=== PATIENT | female | born 1945 | race Asian ===

== ENCOUNTER → 2016-12-28 | Outpatient (CLI) | payer MEDICARE, OTHER ==
[~2016-12-28] MED LIST: MED FOR CHOLESTEROL; MED FOR DIABETES; OSLT75C PO
--- NOTE | 2016-12-28 19:38 | Diagnostic Imaging Report ---
PROCEDURE: US Thyroid. TECHNIQUE: Multiple real-time grayscale images were obtained of the thyroid in various projections. INDICATION: Followup nodules. COMPARISON: 09/15/2013. FINDINGS: The right lobe measures 5.5 cm x 2.5 cm x 1.8 cm and the left lobe measures 3.8 cm x 2.1 cm x 1.8 cm. There is a 1.9 cm peripherally calcified heterogeneous nodule in the inferior right thyroid lobe, currently measuring 1.9 cm x 1.6 cm x 1.6 cm, previously measuring 1.9 cm x 1.6 cm x 1.6 cm. There is a 1.6 cm x 1.5 cm x 0.9 cm complex cystic nodule in the left thyroid lobe inferiorly. This previously measured 1.1 cm in greatest dimension. No new nodules are seen. IMPRESSION: 1. 1.9 cm partially calcified nodule in the inferior right thyroid lobe is unchanged since the prior study. 2. 1.6 cm complex cystic nodule in the inferior left thyroid lobe appears about 4-5 mm larger than in 2014 and remains indeterminate, likely related to goiter. Additional followup ultrasound is recommended. Dictated by: Dictated on workstation # [id number]
== END ==
LOC: RAD 11:54
PROVIDERS: ATTEND Family Medicine
DX: E04.1 Nontoxic single thyroid nodule (principal)
CPT/HCPCS: 76536

== ENCOUNTER 2017-03-06 10:34 | Emergency (ER) | payer MEDICARE ==
[~2017-03-06] VITALS: Ht 165.1 cm; Wt 72.6 kg
--- OUTSIDE RECORDS SUMMARY | 2017-03-06 10:38 | XMS REPORT | Continuity of Care Document ---
Author Author [facility] Organization [facility] Address Unknown Phone Unavailable Allergies Active Description Code Type Severity Reaction Onset Reported/Identified Relationship to Patient Clinical Status Yes No Known Drug Allergies [id number] Drug Allergy Unknown N/A 03/12/2013 Medications There is no data. Problems Date Dx Coded Attending Type Code Diagnosis Diagnosed By 03/12/2013 ELVIA SPEAR, PACO Sykes Ot 487.1 FLU W RESP MANIFEST NEC 03/12/2013 PACO GAN MD Ot 780.60 FEVER, UNSPECIFIED 04/12/2014 SONYA SHETTY DO S Ot 574.20 04/12/2014 KARLA SHETTY DOQUELINE S Ot 576.8 04/12/2014 KARLA SHETTY DOQUELINE S Ot 790.6 04/12/2014 JUAN JOSE JIANG DO Ot 477.9 04/12/2014 JUAN JOSE JIANG DO Ot 786.09 04/12/2014 JUAN OJSE JIANG DO Ot 786.2 07/08/2015 SONYA SHETTY DO S Ot 241.1 NONTOX MULTINODUL GOITER 07/08/2015 KARLA SHETTY DOQUELINE S Ot 574.20 CHOLELITHIASIS NOS 07/08/2015 KARLA SHETTY DOQUELINE S Ot 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 07/08/2015 KARLA SHETTY DOQUELINE S Ot 790.6 ABN BLOOD CHEMISTRY NEC 07/08/2015 JUAN JOSE JIANG DO Ot 477.9 ALLERGIC RHINITIS NOS 07/08/2015 JUAN JOSE JIANG DO Ot 786.09 RESPIRATORY ABNORM NEC 07/08/2015 JUAN JOSE JIANG DO Ot 786.2 COUGH 12/28/2016 KARLA SHETTY DOQUELINE S Ot 574.20 CHOLELITHIASIS NOS 12/28/2016 KARLA SHETTY DOQUELINE S Ot 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 Results There is no data. Encounters ACCT No. Visit Date/Time Discharge Status Pt. Type Provider Facility Loc./Unit Complaint [id number] 12/28/2016 11:54:00 12/28/2016 23:59:59 CLS Outpatient SONYA SHETTY DO [facility] RAD R THYROID NODULE [id number] 04/11/2014 08:18:00 04/11/2014 23:59:59 CLS Outpatient JUAN JOSE JIANG DO [facility] RT COUGH, ALLERGIC RHINITIS, SNORING [id number] 09/26/2013 06:45:00 09/26/2013 23:59:59 CLS Outpatient SONYA SHETTY DO S [facility] RAD ELEVATED LIVER ENZYMES [id number] 09/15/2013 12:12:00 09/15/2013 23:59:59 CLS Outpatient SONYA SHETTY DO S [facility] RAD [id number] 03/12/2013 08:26:00 03/12/2013 10:20:00 DIS Emergency ELVIA SPEAR, PACO Sykes [facility] ER
--- NOTE | 2017-03-06 11:02 | ED Cough/URI ---
General Chief Complaint: Cough/Cold/Flu Symptoms Stated Complaint: COUGH,DIZZINESS,FEVER Nursing Triage Note: PT CO OF COLD COUGH AND FEVER FOR APPROX 3 DAYS Source: patient Exam Limitations: no limitations History of Present Illness Time seen by provider: 11:00 Initial Comments To ER with a productive cough and fever for about 3 days. She has been taking jbkk-zak-pmjzhuy cold medications. Reports general weakness. Timing/Duration: constant Severity/Quality: moderate Associated Symptoms: cough, fever/chills, muscle aches Allergies and Home Medications Allergies Coded Allergies: No Known Drug Allergies (Unverified , 03/12/13) Home Medications [Med For Diabetes] , BID, (Reported) Constitutional: see HPI, chills, fever, malaise, weakness EENTM: see HPI Respiratory: see HPI, cough Cardiovascular: no symptoms reported Genitourinary: no symptoms reported Musculoskeletal: no symptoms reported Skin: no symptoms reported Past Tkcbqom-Xvjpmi-Eluuzf Hx Patient Social History Alcohol Use: Denies Use Recreational Drug Use: No Smoking Status: Never a Smoker Recent Foreign Travel: No Contact w/Someone Who Travel: No Recent Infectious Disease Expo: No Recent Hopitalizations: No Physical Abuse: No Sexual Abuse: No Immunizations Up To Date Date of Influenza Vaccine: Jan 29, 2017 Surgeries History of Surgeries: No Respiratory History of Respiratory Disorde: No Cardiovascular History of Cardiac Disorders: Yes Neurological History of Neurological Disord: No Gastrointestinal History of Gastrointestinal Di: No Musculoskeletal History of Musculoskeletal Dis: No Endocrine History of Endocrine Disorders: Yes Endocrine Disorders: Diabetes, Non-Insulin dep Cancer History of Cancer: No Psychosocial History of Psychiatric Problem: No Suicide Risk Score: 0 Integumentary History of Skin or Integumenta: No Blood Transfusions History of Blood Disorders: No Family Medical History Significant Family History: No Pertinent Family Hx Physical Exam Vital Signs Vital Sign - Last 12Hours 03/06/17 10:40 Temp 96.4 Pulse 68 Resp 18 B/P (MAP) 207/89 (128) Pulse Ox 97 Capillary Refill : Less Than 3 Seconds General Appearance: WD/WN, no apparent distress Eyes: Bilateral Eye Normal Inspection, Bilateral Eye PERRL, Bilateral Eye EOMI HEENT: PERRL/EOMI, normal ENT inspection Neck: non-tender, full range of motion Respiratory: lungs clear, normal breath sounds, no respiratory distress, no accessory muscle use Cardiovascular: regular rate, rhythm, no murmur Gastrointestinal: normal bowel sounds, non tender, soft Neurologic/Psychiatric: alert, normal mood/affect, oriented x 3 Skin: normal color She is rather hypertensive on arrival. States that she does not normally have hypertension and she is aware of. She didn't taking msqq-nip-gtffgkn cough and cold remedies which I suspect is the culprit of the hypertension at least in part. Progress/Results/Core Measures Suspected Sepsis Recent Fever Within 48 Hours: No Infection Criteria Present: None New/Unexplained Altered Menta: No Sepsis Screen: No Definite Risk Sepsis Diagnosis: SIRS Temperature:96.4 Pulse: 68 Respiratory Rate: 18 Blood Pressure 207 /89 Mean: 128 Results/Orders Micro Results Microbiology 03/06/17 Influenza Types A,B Antigen (PAULINE) - Final, Complete My Orders Orders - PIPO URBANO APRN Chest Pa/Lat (2 View) (03/06/17 10:56) Influenza A And B Antigens (03/06/17 10:59) Vital Signs/I&O Vital Sign - Last 12Hours 03/06/17 10:40 Temp 96.4 Pulse 68 Resp 18 B/P (MAP) 207/89 (128) Pulse Ox 97 Capillary Refill : Less Than 3 Seconds Blood Pressure Mean: 128 Departure Impression Impression: Primary Impression: Upper respiratory infection Disposition: 01 HOME, SELF-CARE Condition: Stable Departure-Patient Inst. Decision time for Depature: 11:45 Referrals: SONYA SHETTY DO (PCP/Family) Primary Care Physician Patient Instructions: NO INSTRUCTIONS GIVEN Add. Discharge Instructions: 1. You tested negative for influenza a chest x-ray does not show any pneumonia. We will treat for an upper respiratory infection which is likely viral in nature and tends to improve by day 5-7. If you fail to improve in the next day or 2 or if you worsen then start the antibiotic. In the meantime continue to use Tylenol and Motrin and Coricidin HBP (niaf-ddt-plkemrz cough medication which does not raise blood pressure). All discharge instructions reviewed with patient and/or family. Voiced understanding. Scripts Azithromycin (Azithromycin) 250 Mg Tablet 250 MG PO UD, #6 TAB TAKE 2 TABLETS ON DAY ONE THEN TAKE 1 TABLET DAILY FOR FOUR MORE DAYS Prov: PIPO URBANO APRN 03/06/17 PIPO URBANO APRN Mar 06, 2017 11:01
--- NOTE | 2017-03-06 11:28 | Diagnostic Imaging Report ---
Patient History: Cough, anterior chest pain Technique: Two views of the chest Comparison: 04/11/2014 FINDINGS: The lung volumes are normal. No focal consolidation is seen. No large pleural effusion or pneumothorax is seen. The cardiomediastinal silhouette is normal in size and contour. No acute osseous abnormality is seen. IMPRESSION: No acute pulmonary abnormality seen. Dictated by: Dictated on workstation # [id number]
[2017-03-06] MEDS ORDERED: AZIT250T12 PO (11:47)
[2017-03-06 11:52] VITALS: BP 207/89
== END 2017-03-06 11:52 | disposition home or self-care (01) ==
LOC: EDUNIT# 10:34 → ER 10:36
DX: J06.9 Acute upper respiratory infection, unspecified (principal); E11.9 Type 2 diabetes mellitus without complications
CPT/HCPCS: 71046; 87804; 99282

== ENCOUNTER 2017-10-28 10:51 | Inpatient (IN) | payer MEDICARE ==
[2017-10-28] VITALS (11 sets, daily range): BP systolic 124–193; BP diastolic 53–91
[~2017-10-28] VITALS: Ht 165.1 cm; Wt 65.9 kg
[~2017-10-28 10:51] MED LIST changes: +AZIT250T12 PO
[2017-10-28] MEDS ORDERED: GLYB6TAB3 PO (11:42)
[2017-10-28] MEDS ORDERED: METF-399 PO (11:42)
[2017-10-28] MEDS ORDERED: SIMV40TA4 PO (11:42)
[2017-10-28] MEDS ORDERED: ONDANSETRON 4 MG/2 ML (SDV) Z0FRAN IV PRN (11:45)
[2017-10-28] MEDS ORDERED: amLODIPine 10 MG (NORVASC) TAB PO NR (11:45)
[2017-10-28 12:01] LABS: BASOPHILS % (AUTO) 0 % (0-10); EOSINOPHILS # (AUTO) 0.2 10^3/uL (0.0-0.3); EOSINOPHILS % (AUTO) 2 % (0-10); HEMATOCRIT 35 % (35-52); HEMOGLOBIN 12.8 G/DL (11.5-16.0); LYMPHOCYTES # (AUTO) 3.2 X 10^3 (1.0-4.0); LYMPHOCYTES % (AUTO) 33 % (12-44); MEAN CORPUSCULAR HEMOGLOBIN 23 PG (25-34); MEAN CORPUSCULAR HGB CONC 37 G/DL (32-36); MEAN CORPUSCULAR VOLUME 63 FL (80-99); MEAN PLATELET VOLUME 9.8 FL (7.4-10.4); MONOCYTES # (AUTO) 0.6 X 10^3 (0.0-1.0); MONOCYTES % (AUTO) 6 % (0-12); NEUTROPHILS # (AUTO) 5.6 X 10^3 (1.8-7.8); NEUTROPHILS % (AUTO) 59 % (42-75); PLATELET COUNT 311 10^3/uL (130-400); RED BLOOD COUNT 5.62 10^6/uL (4.35-5.85); RED CELL DISTRIBUTION WIDTH 16.3 % (10.0-14.5); WHITE BLOOD COUNT 9.6 10^3/uL (4.3-11.0)
[2017-10-28 12:22] LABS: ALANINE AMINOTRANSFERASE 15 U/L (0-55); ALBUMIN 4.1 GM/DL (3.2-4.5); ALKALINE PHOSPHATASE 60 U/L (40-136); AMYLASE 42 U/L (25-125); BILIRUBIN,TOTAL 0.6 MG/DL (0.1-1.0); BUN/CREATININE RATIO 19; CALCIUM 9.9 MG/DL (8.5-10.1); CARBON DIOXIDE 22 MMOL/L (21-32); CHLORIDE 104 MMOL/L (98-107); CREATININE SERUM 0.81 MG/DL (0.60-1.30); GFR ESTIMATED > 60; GLUCOSE 247 MG/DL (70-105); LIPASE 48 U/L (8-78); MAGNESIUM 1.9 MG/DL (1.8-2.4); POTASSIUM 3.9 MMOL/L (3.6-5.0); SODIUM 138 MMOL/L (135-145); TOTAL PROTEIN 7.3 GM/DL (6.4-8.2)
[2017-10-28] MEDS: NS IV 1000 ML 1,000 ML IV SCH ×2 (12:30→21:38)
--- NOTE | 2017-10-28 12:44 | Diagnostic Imaging Report ---
PROCEDURE: CT head without contrast. TECHNIQUE: Multiple contiguous axial images were obtained through the brain without the use of intravenous contrast. INDICATION: Altered mental status. FINDINGS: There is prominence of ventricles and sulci. There is mild chronic microvascular ischemic disease. There is a focal area of decreased attenuation of left abdias compatible with acute to subacute stroke. There is no hydrocephalus. There is no midline shift. There is no hemorrhage. There is no extra-axial fluid collection. Calvarium is intact. There is mucosal thickening in the left maxillary sinus. Remaining sinuses and mastoid air cells are clear. IMPRESSION: Focal area of regional decreased attenuation in the left abdias suspect for subacute to acute stroke. Recommend clinical correlation. If warranted, followup with MRI. Atrophy and some chronic microvascular ischemic disease. Mucosal thickening in the left maxillary sinus. Findings conveyed directly to Dr. Nicole via telephone at 12:38 p.m. Dictated by: Dictated on workstation # [id number]
[2017-10-28] MEDS: inSUlin ASPART (NovoLOG) 1 UNIT/0.01 ML (CHARGE PER UNIT) SC SCH ×3 (13:53→21:13)
[2017-10-28] MEDS ORDERED: GADOBUTROL 7.5 MMOL/7.5 ML (GADAVIST) VIAL IV ONE (14:30)
--- NOTE | 2017-10-28 15:23 | Pulmonary Consultation ---
History of Present Illness History of Present Illness Date of Consultation 10/28/17 15:17 Time Seen by Provider: 15:17 Date of Admission History of Present Illness 72yo presented as direct admit from Dr. Nicole's office secondary to altered MS and slurred speech. Pt states she has been getting dizzy, and can not walk straight since last week. Her NIH is 1. MRI shows acute stroke. Her only current deficit is altered speech. No prior episodes like this. I am consulted for ICU management. Allergies and Home Medications Allergies Coded Allergies: No Known Drug Allergies (Unverified , 03/12/13) Home Medications Glyburide,Micronized 6 Mg Tablet, 6 MG PO BID, (Reported) LAST FILLED #180 18 Metformin HCl 1,000 Mg Tablet, 1,000 MG PO DAILY, (Reported) LAST FILLED #60 18 Simvastatin 40 Mg Tablet, 40 MG PO HS, (Reported) LAST FILLED #30 18 Past Kjejxjz-Lkdchj-Mtgqcd Hx Patient Social History Alcohol Use: Denies Use Recreational Drug Use: No Smoking Status: Never a Smoker Recent Foreign Travel: Yes Contact w/Someone Who Travel: Yes Recent Infectious Disease Expo: No Recent Hopitalizations: No Immunizations Up To Date Date of Influenza Vaccine: Jan 29, 2017 Seasonal Allergies Seasonal Allergies: No Past Medical History Surgeries: No Respiratory: No Pneumonia Currently Using CPAP: No Currently Using BIPAP: No Cardiac: Yes Neurological: No Genitourinary: No Gastrointestinal: No Musculoskeletal: No Endocrine: Yes Diabetes, Non-Insulin dep Are Your Blood Sugars Over 250: No Cancer: No Psychosocial: No Integumentary: No Blood Disorders: No Family Medical History No Pertinent Family Hx Review of Systems Time Seen by Provider: 15:26 Constitutional: No: Fever, Chills, Sweats, Weakness, Malaise, Other Eyes: No: Pain, Vision change, Conjunctivae inflammation, Eyelid inflammation, Other, Redness ENT: No: Ear pain, Ear discharge, Nose pain, Nose discharge, Nose congestion, Mouth pain, Mouth swelling, Throat pain, Throat swelling, Other Respiratory: No: Cough, Dry, Shortness of breath, SOB with excertion, Wheezing , Hemoptysis, Pleuritic Pain, Sputum, Wheezing, Other Cardiovascular: Lt Headedness; No: Chest Pain, Palpitations, Orthopnea, Paroxysmal Noc. Dyspnea, Edema, Other Gastrointestinal: No: Nausea, Vomiting, Abdominal Pain, Diarrhea, Constipation , Melena, Hematochezia, Other Neurological: Incoordination, Change in speech, Confusion; No: Weakness, Seizures Sepsis Event Evaluation Height, Weight, BMI Height: 5'5.00" Weight: 146lbs. 1.3oz. 66.168308ri; 24.3 BMI Method:Stated Exam Exam Vital Signs Date Time Temp Pulse Resp B/P (MAP) Pulse Ox O2 Delivery O2 Flow Rate FiO2 10/28/17 13:32 Room Air 10/28/17 12:59 98.2 61 12 172/74 (106) 99 Room Air 10/28/17 12:08 61 18 193/91 (125) 98 Room Air 10/28/17 11:20 98.0 62 18 174/82 (112) 99 Room Air Height & Weight Height: 5'5.00" Weight: 146lbs. 1.3oz. 66.278002jk; 24.3 BMI Method:Stated General Appearance: No Apparent Distress, WD/WN HEENT: PERRL/EOMI, Pharynx Normal, Other (patient believes her speech is slurred. ) Neck: Full Range of Motion, Normal Inspection, Non Tender, Supple; No JVD Respiratory: Chest Non Tender, Lungs Clear, Normal Breath Sounds, No Accessory Muscle Use Cardiovascular: Regular Rate, Rhythm, No Edema, No Gallop, No JVD, No Murmur, Normal Peripheral Pulses Capillary Refill: Less Than 3 Seconds Gastrointestinal: normal bowel sounds, non tender, soft, no organomegaly, no pulsatile mass Extremity: Normal Capillary Refill, Normal Inspection, Normal Range of Motion Neurologic/Psychiatric: Alert, Oriented x3 Skin: Normal Color, Warm/Dry Lymphatic: No Adenopathy Results Lab Laboratory Tests 10/28/17 11:55 Assessment/Plan Assessment/Plan Subacute CVA - symptoms started last week -Pt is out of time window for TPA -Swallow eval was done on 4th floor prior to PO meds. -Check echocardiogram and bilateral carotid dopplers - Start Plavix -Consult PT/OT HTN -Norvasc was started -Hydralazine PRN for SBP >180 JUAN JOSE JIANG DO Oct 28, 2017 15:23
[2017-10-28] MEDS ORDERED: hydrALAZINE (APESOLINE) 20 MG/ML VIAL IV PRN (15:30)
--- NOTE | 2017-10-28 15:30 | Diagnostic Imaging Report ---
PROCEDURE: MR imaging of the brain with and without contrast. TECHNIQUE: Multiplanar, multisequence MR imaging of the brain was performed with and without contrast. INDICATION: CVA. FINDINGS: There is prominence of the ventricles and sulci. There are multifocal areas of abnormal increased T2 signal intensity within the periventricular white matter and subcortical white matter bilaterally. There is a focal area of diffusion restriction in the left abdias compatible with an acute CVA. There is no hydrocephalus. There is no midline shift. There is no intracranial mass, hemorrhage, or extra-axial fluid collection. There is moderate mucosal thickening in the left maxillary sinus. Remaining sinuses and mastoid air cells are clear. There is some fluid in the left mastoid air cells. Right mastoid air cells are clear. The globes and intraorbital structures are unremarkable. Central arterial and dural venous sinus flow voids are preserved. IMPRESSION: Focal area of diffusion restriction in the left hemipons compatible with acute CVA. Atrophy and some chronic microvascular ischemic disease. Left maxillary sinus disease. Otherwise unremarkable MRI brain. Findings conveyed directly to Dr. Nicole at approximately 02:55 p.m. Dictated by: Dictated on workstation # [id number]
--- NOTE | 2017-10-28 15:42 | Diagnostic Imaging Report ---
PA and lateral chest at 1245. Indication: Dyspnea. Findings: The heart size is within normal limits and stable when compared to 03/06/2017. The lungs are clear. There is no evidence for failure, pneumonia or for pleural effusion. Mediastinum is not widened. The osseous structures are intact. Impression: There is no evidence for acute cardiopulmonary abnormality. Dictated by: Dictated on workstation # [id number]
[2017-10-28] MEDS ORDERED: inSUlin ASPART (NovoLOG) 1 UNIT/0.01 ML (CHARGE PER UNIT) SC SCH (16:00)
[2017-10-28 16:22] LABS: BILIRUBIN,URINE NEGATIVE (NEGATIVE); CLARITY,URINE CLEAR; COLOR,URINE YELLOW; GLUCOSE, URINE (UA) 2+ (NEGATIVE); KETONES,URINE NEGATIVE (NEGATIVE); LEUKOCYTE ESTERASE ,URINE 1+ (NEGATIVE); NITRITE,URINE NEGATIVE (NEGATIVE); PH,URINE 5 (5-9); PROTEIN,URINE NEGATIVE (NEGATIVE); UROBILINOGEN,URINE NORMAL (NORMAL)
[2017-10-28 17:01] LABS: BACTERIA,URINE NEGATIVE /HPF; SQUAMOUS EPITHELIAL CELL,UR 0-2 /HPF; WBC,URINE 0-2 /HPF
--- NOTE | 2017-10-28 17:09 | Diagnostic Imaging Report ---
PROCEDURE: US carotid duplex, bilateral. TECHNIQUE: Multiple real-time grayscale images were obtained over the carotid arteries in various projections, bilaterally. Additional duplex Doppler and color Doppler images were also obtained. Parameters based on the consensus panel Green-Scale and Doppler ultrasound criteria published December 2002, Radiology, Volume 229. DOPPLER (peak systolic velocity M/S Right Left CCA .83 1.01 ICA Proximal .35 .75 ICA Mid .42 .60 ICA Distal .50 .68 RATIO .6 .7 ECA 1.07 .97 VERT .45 .52 INDICATION: CVA Grayscale images show some plaque at the carotid bulbs bilaterally. The velocities and waveforms appear normal. The vertebral arteries are both patent with antegrade flow. IMPRESSION: Minimal atherosclerotic plaque at the carotid bifurcations. There is no hemodynamically significant stenosis. Dictated by: Dictated on workstation # [id number]
--- OUTSIDE RECORDS SUMMARY | 2017-10-28 17:26 | XMS REPORT | Continuity of Care Document ---
Author Author [facility] Organization [facility] Address Unknown Phone Unavailable Allergies Active Description Code Type Severity Reaction Onset Reported/Identified Relationship to Patient Clinical Status Yes No Known Drug Allergies [id number] Drug Allergy Unknown N/A 03/12/2013 Medications There [...] JIANG DO Ot 477.9 04/12/2014 JUAN JOSE JINAG DO Ot 786.09 04/12/2014 JUAN JOSE JIANG DO Ot 786.2 07/08/2015 SONYA SHETTY [...] 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 12/28/2016 KALEB SHETTY DOLINE S Ot 790.6 ABN BLOOD CHEMISTRY NEC 12/28/2016 JUAN JOSE JIANG DO Ot 477.9 ALLERGIC RHINITIS NOS 12/28/2016 JUAN JOSE JIANG DO Ot 786.09 RESPIRATORY ABNORM NEC 12/28/2016 JUAN JOSE JIANG DO Ot 786.2 COUGH 01/15/2017 DIOGENES WALKER, SONYA S Ot E04.1 NONTOXIC SINGLE THYROID NODULE 03/06/2017 COTYNDER KARLA WALKERSONYA S Ot 574.20 CHOLELITHIASIS NOS 03/06/2017 COTYNDER DO, SONYA S Ot 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 03/06/2017 CHEYENNEER DO, SONYA S Ot 790.6 ABN BLOOD CHEMISTRY NEC 03/06/2017 JUAN JOSE JIANG DO Ot 477.9 ALLERGIC RHINITIS NOS 03/06/2017 JUAN JOSE JIANG DO Ot 786.09 RESPIRATORY ABNORM NEC 03/06/2017 JUAN JOSE JIANG DO Ot 786.2 COUGH 03/06/2017 SONYA SHETTY DO S Ot E04.1 NONTOXIC SINGLE THYROID NODULE 03/06/2017 PIPO URBANO APRN Ot E11.9 TYPE 2 DIABETES MELLITUS WITHOUT COMPLIC 03/06/2017 PIPO URBANO APRN Ot J06.9 ACUTE UPPER RESPIRATORY INFECTION, UNSPE 03/06/2017 PIPO URBANO APRN Ot R05 COUGH Procedures There is no data. Results Test Result Range Influenza virus A and B antigen detection - 03/06/17 11:01 FLU RESULT NEGATIVE FOR INFLUENZA A AND B ANTIGENS BY IA NRG Encounters ACCT No. Visit Date/Time Discharge Status Pt. Type Provider Facility Loc./Unit Complaint [id number] 03/06/2017 10:36:00 03/06/2017 11:52:00 DIS Emergency PIPO URBANO APRN [facility] ER COUGH,DIZZINESS,FEVER [id number] 12/28/2016 11:54:00 12/28/2016 23:59:59 CLS Outpatient SONYA SHETTY DO S [facility] RAD R THYROID NODULE [id number] 04/11/2014 08:18:00 04/11/2014 23:59:59 CLS Outpatient JUAN JOSE JIANG DO [facility] RT COUGH, ALLERGIC RHINITIS, SNORING [id number] 09/26/2013 06:45:00 09/26/2013 23:59:59 CLS Outpatient SONYA SHETTY DO [facility] RAD ELEVATED LIVER ENZYMES [id number] 09/15/2013 12:12:00 09/15/2013 23:59:59 CLS Outpatient SONYA SHETTY DO [facility] RAD [id number] 03/12/2013 08:26:00 03/12/2013 10:20:00 DIS Emergency ELVIA SPEAR, PACO Sykes [facility] ER 07/08/17 10/28/2017 13:43:14 ACT Outpatient
--- NOTE | 2017-10-28 20:03 | History & Physicial ---
History of Present Illness History of Present Illness Reason for visit/HPI This is a 72 year old female brought to my office by her daughter with confusion and weakness. She had been in [place] visiting family for the past few months and states she had not been good about taking her medications. She was found to be hypertensive with a blood pressure of 190/100 and her blood sugar was in the high 300s. She was very weak needing assistance to ambulate as well as confused (thinking it was 196) with slurred speech. It was decided to directly admit her for further evaluation and treatment. Date of Admission Oct 28, 2017 at 11:15 Date Seen by Provider: Oct 28, 2017 Time Seen by Provider: 19:58 I consulted on this patient on 10/28/17 19:58 Attending Physician Angelita Nicole DO Admitting Physician Angelita Nicole DO Consult Allergies and Home Medications Allergies Coded Allergies: No Known Drug Allergies (Unverified , 03/12/13) Home Medications Glyburide,Micronized 6 Mg Tablet, 6 MG PO BID, (Reported) LAST FILLED #180 8-18 Metformin HCl 1,000 Mg Tablet, 1,000 MG PO DAILY, (Reported) LAST FILLED #60 38-18 Simvastatin 40 Mg Tablet, 40 MG PO HS, (Reported) LAST FILLED #30 09-21-18 Patient Home Medication List Home Medication List Reviewed: Yes Past Eijsijf-Nmmbcx-Zatnft Hx Patient Social History Alcohol Use: Denies Use Recreational Drug Use: No Smoking Status: Never a Smoker Physical Abuse Screen: No Sexual Abuse: No Recent Foreign Travel: Yes Contact w/other who traveled: Yes Recent Hopitalizations: No Recent Infectious Disease Expo: No Immunizations Up To Date Date of Influenza Vaccine: Jan 29, 2017 Seasonal Allergies Seasonal Allergies: No Surgeries No Respiratory No Currently Using CPAP: No Currently Using BIPAP: No Cardiovascular Yes Neurological No Genitourinary No Gastrointestinal No Musculoskeletal No Endocrine History of Endocrine Disorders: Yes Endocrine Disorders: Diabetes, Non-Insulin dep Are Your Blood Sugars Over 250: No Cancer No Psychosocial History of Psychiatric Problem: No Integumentary History of Skin or Integumenta: No Blood Transfusions History of Blood Disorders: No Family Medical History Significant Family History: No Pertinent Family Hx Review of Systems Constitutional: weakness EENTM: No see HPI, No no symptoms reported, No ear discharge, No hearing loss, No ear pain, No blurred vision, No double vision, No eye pain, No tearing, No vision loss, No dental problems, No hoarseness, No mouth pain, No mouth swelling , No epistaxis, No nose congestion, No nose pain, No throat pain, No throat swelling, No other Respiratory: No no symptoms reported, No see HPI, No cough, No dyspnea on exertion, No hemoptysis, No orthopnea, No phlegm, No short of breath, No stridor , No wheezing, No other Cardiovascular: No no symptoms reported, No see HPI, No chest pain, No edema, No Hx of Intervention, No palpitations, No syncope, No vascular heart diseas, No other Gastrointestinal: No RUQ, No LUQ, No RLQ, No LLQ, No no symptoms reported, No see HPI, No abdominal pain, No constipation, No diarrhea, No dysphagia, No hematemesis, No heartburn, No jaundice, No loss of appetite, No melena, No nausea, No vomiting, No other Genitourinary: No no symptoms reported, No see HPI, No decreased output, No discharge, No dysuria, No frequency, No hematuria, No hesitancy, No incontinence , No nocturia, No pain, No other Musculoskeletal: muscle weakness Skin: No no symptoms reported, No see HPI, No change in color, No change in hair/nails, No dryness, No hx of skin cancer, No lesions, No lumps, No pruritus , No rash, No other Psychiatric/Neurological: Weakness, Other (confusion) Physical Exam Vital Signs Vital Signs - First Documented 10/28/17 11:20 Temp 98.0 Pulse 62 Resp 18 B/P (MAP) 174/82 (112) Pulse Ox 99 O2 Delivery Room Air Capillary Refill : Less Than 3 Seconds Height, Weight, BMI Height: 5'5.00" Weight: 146lbs. 1.3oz. 66.296647tf; 24.3 BMI Method:Stated General Appearance: Moderate Distress HEENT: Normal ENT Inspection Neck: Supple Respiratory: Lungs Clear Cardiovascular: Regular Rate, Rhythm, Systolic Murmur, Gallop/S4 Gastrointestinal: Normal Bowel Sounds, Non Tender, Soft Rectal: Deferred Back: No CVA Tenderness Extremity: Non Tender, No Calf Tenderness, No Pedal Edema Neurologic/Psychiatric: Abnormal Gait, Disoriented, Motor Weakness Skin: Warm/Dry Comments Laboratory Tests 10/28/17 11:55: White Blood Count 9.6, Red Blood Count 5.62, Hemoglobin 12.8, Hematocrit 35, Mean Corpuscular Volume 63L, Mean Corpuscular Hemoglobin 23L, Mean Corpuscular Hemoglobin Concent 37H, Red Cell Distribution Width 16.3H, Platelet Count 311, Mean Platelet Volume 9.8, Neutrophils (%) (Auto) 59, Lymphocytes (%) (Auto) 33, Monocytes (%) (Auto) 6, Eosinophils (%) (Auto) 2, Basophils (%) (Auto) 0, Neutrophils # (Auto) 5.6, Lymphocytes # (Auto) 3.2, Monocytes # (Auto) 0.6, Eosinophils # (Auto) 0.2, Basophils # (Auto) 0.0, Sodium Level 138, Potassium Level 3.9, Chloride Level 104, Carbon Dioxide Level 22, Anion Gap 12, Blood Urea Nitrogen 15, Creatinine 0.81, Estimat Glomerular Filtration Rate > 60, BUN/ Creatinine Ratio 19, Glucose Level 247H, Calcium Level 9.9, Corrected Calcium 9.8, Magnesium Level 1.9, Total Bilirubin 0.6, Aspartate Amino Transf (AST/SGOT ) 14, Alanine Aminotransferase (ALT/SGPT) 15, Alkaline Phosphatase 60, Troponin I < 0.30, Total Protein 7.3, Albumin 4.1, Amylase Level 42, Lipase 48, Thyroid Stimulating Hormone (TSH) 2.54 10/28/17 12:45: Glucometer 186H 10/28/17 15:33: Glucometer 112H 10/28/17 16:10: Urine Color YELLOW, Urine Clarity CLEAR, Urine pH 5, Urine Specific [place] 1.015L, Urine Protein NEGATIVE, Urine Glucose (UA) 2+H, Urine Ketones NEGATIVE, Urine Nitrite NEGATIVE, Urine Bilirubin NEGATIVE, Urine Urobilinogen NORMAL, Urine Leukocyte Esterase 1+H, Urine RBC (Auto) NEGATIVE, Urine RBC NONE, Urine WBC 0-2, Urine Squamous Epithelial Cells 0-2, Urine Crystals NONE, Urine Bacteria NEGATIVE, Urine Casts NONE, Urine Mucus NEGATIVE, Urine Culture Indicated NO Assessment/Plan Assessment and Plan 1. Acute Left Pontine Infarct--Check carotid dopplers, ECHO, start plavix/ aspirin, ST, OT and PT 2. Hypertensive Urgency--improved after amlodopine dose 3. Uncontrolled Diabetes mellitus II--start accuchecks with SSI Admission Diagnosis Admission Status: Inpatient Order (span 2 midnights) Reason for Inpatient Admission: Will need ICU as well as medication adjustment and therapies Clinical Quality Measures DVT/VTE Risk/Contraindication: Risk Factor Score Per Nursin RFS Level Per Nursing on Admit: 2=Moderate ANGELITA NICOLE DO Oct 28, 2017 20:03
[2017-10-28] MEDS ORDERED: ASPIRIN 81 MG CHEW (CHILDREN'S ASA) PO NR (20:15)
[2017-10-28] MEDS ORDERED: ACETAMINOPHEN 325 MG TABLET PO PRN (20:15)
[2017-10-29] VITALS (13 sets, daily range): BP systolic 112–177; BP diastolic 56–98
[2017-10-29 05:20] LABS: BASOPHILS % (AUTO) 0 % (0-10); EOSINOPHILS # (AUTO) 0.2 10^3/uL (0.0-0.3); EOSINOPHILS % (AUTO) 2 % (0-10); HEMATOCRIT 36 % (35-52); HEMOGLOBIN 12.7 G/DL (11.5-16.0); LYMPHOCYTES # (AUTO) 2.6 X 10^3 (1.0-4.0); LYMPHOCYTES % (AUTO) 33 % (12-44); MEAN CORPUSCULAR HEMOGLOBIN 22 PG (25-34); MEAN CORPUSCULAR HGB CONC 35 G/DL (32-36); MEAN CORPUSCULAR VOLUME 63 FL (80-99); MEAN PLATELET VOLUME 10.1 FL (7.4-10.4); MONOCYTES # (AUTO) 0.4 X 10^3 (0.0-1.0); MONOCYTES % (AUTO) 5 % (0-12); NEUTROPHILS # (AUTO) 4.7 X 10^3 (1.8-7.8); NEUTROPHILS % (AUTO) 60 % (42-75); PLATELET COUNT 335 10^3/uL (130-400); RED BLOOD COUNT 5.74 10^6/uL (4.35-5.85); WHITE BLOOD COUNT 7.8 10^3/uL (4.3-11.0)
[2017-10-29 05:45] LABS: ALANINE AMINOTRANSFERASE 16 U/L (0-55); ALBUMIN 3.9 GM/DL (3.2-4.5); ALKALINE PHOSPHATASE 56 U/L (40-136); BILIRUBIN,TOTAL 0.7 MG/DL (0.1-1.0); BUN/CREATININE RATIO 15; CALCIUM 9.2 MG/DL (8.5-10.1); CARBON DIOXIDE 24 MMOL/L (21-32); CHLORIDE 107 MMOL/L (98-107); CREATININE SERUM 0.68 MG/DL (0.60-1.30); GFR ESTIMATED > 60; GLUCOSE 172 MG/DL (70-105); PHOSPHORUS 3.1 MG/DL (2.3-4.7); SODIUM 140 MMOL/L (135-145); TOTAL PROTEIN 6.9 GM/DL (6.4-8.2)
[2017-10-29] MEDS: NS IV 1000 ML 1,000 ML IV SCH (05:54)
[2017-10-29] MEDS: inSUlin ASPART (NovoLOG) 1 UNIT/0.01 ML (CHARGE PER UNIT) SC SCH ×4 (05:57→20:40)
[2017-10-29] MEDS ORDERED: KCL 20 MEQ TAB (K-DUR) PO SCH (06:00)
[2017-10-29] MEDS ORDERED: POTASSIUM CL 10MEQ/50ML IVPB 50 ML IV SCH (06:00)
[2017-10-29] MEDS ORDERED: MAGNESIUM 1 GM/100 ML IVPB 100 ML IV SCH (06:00)
--- NOTE | 2017-10-29 06:48 | Pulmonary Progress Note ---
Subjective Time Seen by Provider: 06:47 Subjective/Events-last exam No complications noted. Sepsis Event Evaluation Height, Weight, BMI Height: 5'5.00" Weight: 146lbs. 1.3oz. 66.794951gn; 24.3 BMI Method:Stated Exam Exam Vital Signs Date Time Temp Pulse Resp B/P (MAP) Pulse Ox O2 Delivery O2 Flow Rate FiO2 10/29/17 06:00 50 9 145/72 (96) 100 Room Air 10/29/17 05:00 55 20 149/83 (105) 100 Room Air 10/29/17 04:00 100 Room Air 10/29/17 04:00 53 13 140/72 (94) 100 Room Air 10/29/17 03:00 53 16 148/76 (100) 100 Room Air 10/29/17 02:00 52 15 131/56 (81) 100 Room Air 10/29/17 01:00 54 16 148/78 (101) 100 Room Air 10/29/17 01:00 54 10/29/17 00:00 72 10 157/98 (117) 100 Room Air 10/29/17 00:00 98.0 10/29/17 00:00 100 Room Air 10/28/17 23:00 58 14 125/53 (77) 100 Room Air 10/28/17 22:00 60 15 124/58 (80) 100 Room Air 10/28/17 21:00 60 22 139/64 (89) 100 Room Air 10/28/17 20:00 98.4 76 18 159/70 (99) 97 Room Air 10/28/17 20:00 100 Room Air 10/28/17 19:00 63 10/28/17 19:00 63 14 153/72 (99) 97 Room Air 10/28/17 18:00 62 25 148/82 (104) 100 Room Air 10/28/17 17:00 53 19 131/70 (90) 99 Room Air 10/28/17 16:00 55 18 135/68 (90) 100 Room Air 10/28/17 15:39 97.3 10/28/17 15:34 100 Room Air 10/28/17 13:32 Room Air 10/28/17 12:59 98.2 61 12 172/74 (106) 99 Room Air 10/28/17 12:08 61 18 193/91 (125) 98 Room Air 10/28/17 11:20 98.0 62 18 174/82 (112) 99 Room Air I & O 10/29/17 07:00 Intake Total 375 ml Output Total 1700 ml Balance -1325 ml Height & Weight Height: 5'5.00" Weight: 146lbs. 1.3oz. 66.125275cv; 24.3 BMI Method:Stated General Appearance: No Apparent Distress HEENT: Normal ENT Inspection Neck: Supple Respiratory: Lungs Clear Cardiovascular: Regular Rate, Rhythm, Systolic Murmur, Gallop/S4 Capillary Refill: Less Than 3 Seconds Gastrointestinal: normal bowel sounds, non tender, soft, no organomegaly, no pulsatile mass Extremity: Non Tender, No Calf Tenderness, No Pedal Edema Neurologic/Psychiatric: Alert, Oriented x3, Motor Weakness Skin: Warm/Dry Lymphatic: No Adenopathy Results Lab Laboratory Tests 10/28/17 11:55 10/29/17 05:01 Assessment/Plan Assessment/Plan left Pontine CVA -per MRI -- -Pt is out of time window for TPA -Swallow eval was done on 4th floor prior to PO meds. -Check echocardiogram - Pending -bilateral carotid dopplers- NEG - Plavix/ASA -Consult PT/OT HTN -Norvasc -Hydralazine PRN for SBP >180 Uncontrolled DM -Monitor Will transfer to 4th floor and sign off. Please call with any questions. JUAN JOSE JIANG DO Oct 29, 2017 06:48
[2017-10-29] MEDS: CLOPIDOGREL 75 MG (PLAVIX) TABLET PO SCH (07:34)
[2017-10-29] MEDS: ASPIRIN 81 MG CHEW (CHILDREN'S ASA) PO SCH (07:34)
[2017-10-29] MEDS: amLODIPine 5 MG (NORVASC) TAB PO SCH (07:34)
--- NOTE | 2017-10-29 10:05 | Physical Therapy Evaluation ---
PT Evaluation-General Medical Diagnosis Admission Date Oct 28, 2017 at 11:15 Medical Diagnosis: AMS/CVA Onset Date: Oct 28, 2017 Therapy Diagnosis Therapy Diagnosis: debility Height/Weight Height (Feet): 5 Height (Inches): 5.00 Weight (Pounds): 147 Weight (Ounces): 1.3 Precautions Precautions/Isolations: Fall Prevention, Standard Precautions Referral Physician: Nohemi Reason for Referral: Evaluation/Treatment Medical History Pertinent Medical History: CAD, DM, HTN Current History Direct admit secondary to AMS, slurred speech, dizziness Reviewed History: Yes Social History Home: Single Level Prior/Core FIM Prior Level of Function Functional [place] Measure 0=Not Assessed/NA 4=Minimal Assistance 1=Total Assistance 5=Supervision or Setup 2=Maximal Assistance 6=Modified [place] 3=Moderate Assistance 7=Complete [place] Bed Mobility: 7 Transfers (B,C,W/C) (FIM): 7 Gait: 7 PT Evaluation-Current Subjective Patient agrees to PT. Pain Numeric Pain Scale: 0-No Pain Location: No Pain Reported Objective Patient Orientation: Normal For Age Problem Solving: Fair ROM/Strength ROM Lower Extremities bilateral LE WNL Strength Lower Extremities 5/5 grossly bilaterally Integumentary/Posture Integumentary refer to nursing notes Bowel Incontinence: No Bladder Incontinence: No Posture WFL Neuromuscular (Tone, Coordination, Reflexes) grossly intact Sensory Vision: Wears Glasses Hearing: Functional Sensation Right Lower Extremit: Intact Sensation Left Lower Extremity: Intact Transfers Functional [place] Measure 0=Not Assessed/NA 4=Minimal Assistance 1=Total Assistance 5=Supervision or Setup 2=Maximal Assistance 6=Modified [place] 3=Moderate Assistance 7=Complete [place] Transfers (B, C, W/C) (FIM): 7 Scootin Rollin Supine to/from Sit: 7 Sit to/from Stand: 7 Gait Mode of Locomotion: Walk Anticipated Mode of Locomotion: Walk Gait (FIM): 7 Distance (FIM): 3=150 ft Distance: >500' Gait Level of Assist: 7 Gait Assistive Device: None Comments/Gait Description safe and functional Balance Sitting Static: Normal Sitting Dynamic: Normal Standing Static: Normal Standing Dynamic: Normal Assessment/Needs 72 y.o. female, is currently at independent [facility] with all gross motor skills safely and does not require skilled PT intervention. Rehab Potential: Fair PT Plan Treatment/Plan Treatment Plan: Discontinue PT, goals met Treatment Plan: Other Treatment Duration: Oct 29, 2017 Frequency: 1 time per week Estimated Hrs Per Day: .25 hour per day Patient and/or Family Agrees t: Yes Time/GCodes Time In: 915 Time Out: 925 Total Billed Treatment Time: 10 Total Billed Treatment 1 visit EVLowC 10 min G Codes Necessary: BARB Marx PT Oct 29, 2017 10:05
--- NOTE | 2017-10-29 13:43 | ST Cognitive Linguistic Eval ---
Speech Evaluation-General Medical Diagnosis AMS/CVA Onset Date: Oct 28, 2017 Therapy Diagnosis Therapy Diagnosis: Speech/language Precautions Precautions/Isolations: Standard Precautions Referral Referring Physician: Dr. Nicole Reason for Referral: Evaluation/Treatment Medical History Pertinent Medical History: CAD, DM, HTN Reviewed History: Yes Speech PLF-Current Status Prior Level of Function Independent and lives alone Subjective is with pt. Introduced my self and explained reason for visit. Pain Numeric Pain Scale: 0-No Pain Language Eval: Auditory Comprehends Simple Yes/No Ques: Functional Follows 1-Step Commands: Functional Follows Complex Directions: Functional Follows General Conversations: Functional Language Eval: Verbal Language Completes Spontaneous Greeting: Functional Word Finding: Functional Requests Basic Needs: Functional States Basic Personal Info: Functional Expresses Complex Ideas: Functional Objective Results Informal assessment while pt talking to Oral Motor/Speech Production WNL Impression Functional communication skills. Family relates that their mother's speech is baseline. Speech Short Term Goals Short Term Goals Short Term Goals no goals established as no skilled ST is not indicated. Speech Business Improvement Manager Goals Business Improvement Manager Goals no LTGs established as skilled ST not indicated. Speech-Plan Patient/Family Goals Patient/Family Goals: to go home Treatment Plan Speech Therapy Treatment Plan: Discontinue ST Pt exhibits functional communication skills. Frequency: Modified Program (IRF) (0) Estimated Hrs Per Day: Other (0) Rehab Potential: Good Pt/Family Agrees to Plan: Yes Safety Risks/Education Teaching Recipient: Patient Teaching Methods: Discussion Response to Teaching: Verbalize Understanding Time Speech Therapy Time In: 13:15 Speech Therapy Time Out: 13:35 Total Billed Time: 20 Billed Treatment Time 1, SPSNDCOMP ARTIE Jaquez Oct 29, 2017 13:43
--- NOTE | 2017-10-29 13:49 | Progress Note (SOAP) ---
Subjective Date Seen by Provider: Oct 29, 2017 Time Seen by Provider: 13:41 Subjective/Events-last exam Fwup left pontine stroke, uncontrolled HTN, uncontrolled diabetes. Did well with PT--no deficits noted. States speech is improving as well. Per daughter-- she thinks stroke happened at least 2 weeks ago when was in [place]--states she had not taken any medications for at least 2 weeks and was having weakness with frequent falls as well as headaches and speech difficulties. Objective Exam Vital Signs Date Time Temp Pulse Resp B/P (MAP) Pulse Ox O2 Delivery O2 Flow Rate FiO2 10/29/17 12:00 98.4 55 18 112/78 (89) 97 Room Air 10/29/17 09:20 Room Air 10/29/17 09:15 97.8 61 20 177/78 (111) 97 Room Air 10/29/17 09:00 64 6 152/76 (101) 99 Room Air 10/29/17 08:00 100 Room Air 10/29/17 08:00 62 12 137/61 (86) 100 Room Air 10/29/17 07:35 98.8 61 18 139/66 (90) 100 Room Air 10/29/17 07:00 61 10/29/17 06:00 50 9 145/72 (96) 100 Room Air 10/29/17 05:00 55 20 149/83 (105) 100 Room Air 10/29/17 04:00 100 Room Air 10/29/17 04:00 53 13 140/72 (94) 100 Room Air 10/29/17 03:00 53 16 148/76 (100) 100 Room Air 10/29/17 02:00 52 15 131/56 (81) 100 Room Air 10/29/17 01:00 54 16 148/78 (101) 100 Room Air 10/29/17 01:00 54 10/29/17 00:00 72 10 157/98 (117) 100 Room Air 10/29/17 00:00 98.0 10/29/17 00:00 100 Room Air 10/28/17 23:00 58 14 125/53 (77) 100 Room Air 10/28/17 22:00 60 15 124/58 (80) 100 Room Air 10/28/17 21:00 60 22 139/64 (89) 100 Room Air 10/28/17 20:00 98.4 76 18 159/70 (99) 97 Room Air 10/28/17 20:00 100 Room Air 10/28/17 19:00 63 10/28/17 19:00 63 14 153/72 (99) 97 Room Air 10/28/17 18:00 62 25 148/82 (104) 100 Room Air 10/28/17 17:00 53 19 131/70 (90) 99 Room Air 10/28/17 16:00 55 18 135/68 (90) 100 Room Air 10/28/17 15:39 97.3 10/28/17 15:34 100 Room Air I & O 10/29/17 07:00 Intake Total 1375 ml Output Total 2700 ml Balance -1325 ml Capillary Refill : Less Than 3 SecondsLess Than 3 Seconds General Appearance: No Apparent Distress Respiratory: Lungs Clear Cardiovascular: Regular Rate, Rhythm Gastrointestinal: normal bowel sounds, non tender, soft Extremity: Non Tender, No Calf Tenderness, No Pedal Edema Neurologic/Psychiatric: Alert, Oriented x3 Results Lab Laboratory Tests 10/28/17 15:33: Glucometer 112H 10/28/17 16:10: Urine Color YELLOW, Urine Clarity CLEAR, Urine pH 5, Urine Specific [place] 1.015L, Urine Protein NEGATIVE, Urine Glucose (UA) 2+H, Urine Ketones NEGATIVE, Urine Nitrite NEGATIVE, Urine Bilirubin NEGATIVE, Urine Urobilinogen NORMAL, Urine Leukocyte Esterase 1+H, Urine RBC (Auto) NEGATIVE, Urine RBC NONE, Urine WBC 0-2, Urine Squamous Epithelial Cells 0-2, Urine Crystals NONE, Urine Bacteria NEGATIVE, Urine Casts NONE, Urine Mucus NEGATIVE, Urine Culture Indicated NO 10/28/17 21:09: Glucometer 227H 10/29/17 05:01: White Blood Count 7.8, Red Blood Count 5.74, Hemoglobin 12.7, Hematocrit 36, Mean Corpuscular Volume 63L, Mean Corpuscular Hemoglobin 22L, Mean Corpuscular Hemoglobin Concent 35, Red Cell Distribution Width 17.0H, Platelet Count 335, Mean Platelet Volume 10.1, Neutrophils (%) (Auto) 60, Lymphocytes (%) (Auto) 33 , Monocytes (%) (Auto) 5, Eosinophils (%) (Auto) 2, Basophils (%) (Auto) 0, Neutrophils # (Auto) 4.7, Lymphocytes # (Auto) 2.6, Monocytes # (Auto) 0.4, Eosinophils # (Auto) 0.2, Basophils # (Auto) 0.0, Sodium Level 140, Potassium Level 4.0, Chloride Level 107, Carbon Dioxide Level 24, Anion Gap 9, Blood Urea Nitrogen 10, Creatinine 0.68, Estimat Glomerular Filtration Rate > 60, BUN/ Creatinine Ratio 15, Glucose Level 172H, Calcium Level 9.2, Corrected Calcium 9.3, Phosphorus Level 3.1, Magnesium Level 2.0, Total Bilirubin 0.7, Aspartate Amino Transf (AST/SGOT) 15, Alanine Aminotransferase (ALT/SGPT) 16, Alkaline Phosphatase 56, Total Protein 6.9, Albumin 3.9 10/29/17 10:53: Glucometer 306H Assessment/Plan Assessment/Plan Assess & Plan/Chief Complaint 1. Left Pontine Stroke--Carotids negative, ECHO results pending, on plavix and aspirin, start atorvastatin, long discussion with all 3 children and at this time the plan is for her to go back to with them on Wednesday and she will be moved in to the home with her 2 daughters--they will bring her to her house this weekend and stay with her and then on to --her daughter will bring her back to see me in 2 weeks and they will go to ER in if worsens 2. Hypertension--much better with low dose amlodopine and okay with less then 160 right now--will likely add low dose ANTONIETA or ARB prior to DC or at fwup 3. Uncontrolled DMII--resume home metformin and continue SSI with accuchecks, will try to get environmental educator in today to at least show children how to do accuchecks and give some teaching to patient and family Clinical Quality Measures Admission Status Admission Dx 1. Acute Left Pontine Infarct--Check carotid dopplers, ECHO, start plavix/ aspirin, ST, OT and PT 2. Hypertensive Urgency--improved after amlodopine dose 3. Uncontrolled Diabetes mellitus II--start accuchecks with SSI DVT/VTE Risk/Contraindication: Risk Factor Score Per Nursin RFS Level Per Nursing on Admit: 2=Moderate SONYA SHETTY DO Oct 29, 2017 13:49
--- NOTE | 2017-10-29 13:51 | Occupational Therapy Eval ---
OT Evaluation-General/PLF Medical Diagnosis Admission Date Oct 28, 2017 at 11:15 Medical Diagnosis: AMS/CVA Onset Date: Oct 28, 2017 Therapy Diagnosis Therapy Diagnosis: decr self care Height/Weight Height (Feet): 5 Height (Inches): 5.00 Weight (Pounds): 147 Weight (Ounces): 1.3 Precautions Precautions/Isolations: Standard Precautions Safety Interventions: None Referral Physician: Nohemi Referral Reason: Evaluation/Treatment Medical History Pertinent Medical History: CAD, DM, HTN Current History Pt admitted with confusion and weakness. Hypertensive and high blood sugar. AMS and slurred speech. Imaging shows acute L pontine infarct. Family reported she was weak and had difficulty talking when she was in [place] and they had to go get her. Reviewed History: Yes Social History Home: Single Level ADL-Prior Level of Function ADL PLOF Comments Pt and family reported that she was previously able to manage all of her basic self care needs and drove. OT Current Status Subjective Pt seen in room, agreeable to OT. pain reported 0/10 Appearance Alert, cooperative Current Hand Dominance: Right Upper Extremity ROM Grossly WFL bilat Upper Extremity Strength Grossly 4+/5 bilat ADL-Treatment ADL-Current She was able to toilet herself on tall toilet, managing clothing, sit on EOB and take slipper socks off/put them on, walk to bathroom and change her shirt while standing in front of mirror, with no LOB and no AD. No visual problems per quick visual screening. PT margoth shows ambulation independent with no AD. Family reported she was going home today. No skilled OT needs identified Functional [employer] Measure 0=Not Assessed/NA 4=Minimal Assistance 1=Total Assistance 5=Supervision or Setup 2=Maximal Assistance 6=Modified [employer] 3=Moderate Assistance 7=Complete IndependenceIRFPAI Quality Coding Scale 6 Independent with activity with or without an assistive device 5 Patient requires set up or clean up by helper. Patient completes activity by themselves 4 Supervision or touching assist (CGA). [place] provide cues , steadying assist 3 The helper provides less than half the effort to complete the activity 2 The helper provides more than half the effort to complete the activity 1 Dependent. The helper does all the effort to complete an activity 7 Patient refused to complete or attempt activity 9 The patient did not perform the activity before the current illness or injury 88 Not attempted due to Medical conditions or safety concerns Education OT Patient Education: Purpose of tx/functional activities, Rehab process Teaching Recipient: Patient Teaching Methods: Discussion Response to Teaching: Verbalize Understanding OT Education/Plan Problem List/Assessment Assessment: No Skilled OT Needs ID'd Pt able to manage ADLS and is walking independently. No UE weakness. No skilled needs identified Discharge Recommendations Plan/Recommendations: Discontinue OT Therapy D/C Recommendations: Home w/ Family Support Treatment Plan/Plan of Care Treatment,Training & Education: No Patient would benefit from OT for education, treatment and training to promote independence in ADL's, mobility, safety and/or upper extremity function for ADL' s. Treatment Duration: Oct 29, 2017 Frequency: 1 time per week Estimated Hrs Per Day: Other (DC) Agreement: Yes Rehab Potential: Good Time/GCodes Start Time: 11:00 Stop Time: 11:13 Total Time Billed (hr/min): 13 Billed Treatment Time visit, 13 minutes evaluation low intensity DAKOTAH SCOTT OT Oct 29, 2017 13:51
[2017-10-29] MEDS ORDERED: AMLO5TAB7 PO (13:55)
[2017-10-29] MEDS ORDERED: ATOR20TA66 PO (13:55)
[2017-10-29] MEDS ORDERED: CLOP75TA28 PO (13:55)
[2017-10-29] MEDS ORDERED: METF-399 PO (13:55)
[2017-10-29] MEDS ORDERED: ASPI-999 PO (13:55)
[2017-10-29] MEDS: metFORMIN 500 MG (GLUCOPHAGE) TAB PO SCH (17:37)
[2017-10-29] MEDS ORDERED: NON-FORMULARY MEDICATION 1 EA EA (Metformin HCl 1,000 MG) PO SCH (21:00)
[2017-10-29] MEDS ORDERED: ATORVASTATIN 20 MG (LIPITOR) TABLET PO SCH (21:00)
[2017-10-30 00:04] VITALS: BP 136/63
[2017-10-30 04:16] VITALS: BP 151/70
[2017-10-30 06:03] LABS: BASOPHILS % (AUTO) 0 % (0-10); EOSINOPHILS # (AUTO) 0.1 10^3/uL (0.0-0.3); EOSINOPHILS % (AUTO) 2 % (0-10); HEMATOCRIT 35 % (35-52); HEMOGLOBIN 12.5 G/DL (11.5-16.0); LYMPHOCYTES # (AUTO) 2.2 X 10^3 (1.0-4.0); LYMPHOCYTES % (AUTO) 30 % (12-44); MEAN CORPUSCULAR HEMOGLOBIN 23 PG (25-34); MEAN CORPUSCULAR HGB CONC 36 G/DL (32-36); MEAN CORPUSCULAR VOLUME 63 FL (80-99); MEAN PLATELET VOLUME 10.5 FL (7.4-10.4); MONOCYTES # (AUTO) 0.3 X 10^3 (0.0-1.0); MONOCYTES % (AUTO) 4 % (0-12); NEUTROPHILS # (AUTO) 4.7 X 10^3 (1.8-7.8); NEUTROPHILS % (AUTO) 64 % (42-75); PLATELET COUNT 321 10^3/uL (130-400); RED CELL DISTRIBUTION WIDTH 16.5 % (10.0-14.5); WHITE BLOOD COUNT 7.4 10^3/uL (4.3-11.0)
[2017-10-30 06:25] LABS: ALANINE AMINOTRANSFERASE 18 U/L (0-55); ALBUMIN 3.8 GM/DL (3.2-4.5); ALKALINE PHOSPHATASE 52 U/L (40-136); BILIRUBIN,TOTAL 0.6 MG/DL (0.1-1.0); BUN/CREATININE RATIO 18; CALCIUM 9.9 MG/DL (8.5-10.1); CARBON DIOXIDE 21 MMOL/L (21-32); CHLORIDE 106 MMOL/L (98-107); CREATININE SERUM 0.84 MG/DL (0.60-1.30); GFR ESTIMATED > 60; GLUCOSE 246 MG/DL (70-105); MAGNESIUM 1.9 MG/DL (1.8-2.4); POTASSIUM 4.6 MMOL/L (3.6-5.0); SODIUM 139 MMOL/L (135-145); TOTAL PROTEIN 6.5 GM/DL (6.4-8.2)
[2017-10-30] MEDS: inSUlin ASPART (NovoLOG) 1 UNIT/0.01 ML (CHARGE PER UNIT) SC SCH (06:39)
[2017-10-30] MEDS: metFORMIN 500 MG (GLUCOPHAGE) TAB PO SCH (06:40)
[2017-10-30 06:50] LABS: CHOLESTEROL 169 MG/DL (< 200); HDL CHOLESTEROL 58 MG/DL (40-60); TRIGLYCERIDES 86 MG/DL (<150); VLDL CHOLESTEROL 17 MG/DL (5-40)
[2017-10-30] MEDS: ASPIRIN 81 MG CHEW (CHILDREN'S ASA) PO SCH (08:22)
[2017-10-30] MEDS: amLODIPine 5 MG (NORVASC) TAB PO SCH (08:22)
[2017-10-30] MEDS: CLOPIDOGREL 75 MG (PLAVIX) TABLET PO SCH (08:22)
[2017-10-30 09:00] VITALS: BP 144/67
[2017-10-30] MEDS ORDERED: GLYB2.5T4 PO (10:12)
--- NOTE | 2017-10-30 10:13 | Discharge Summary-Hospitalist ---
Diagnosis/Chief Complaint Date of Admission Oct 28, 2017 at 11:15 Date of Discharge Discharge Date: Oct 30, 2017 Discharge Diagnosis (1) Left pontine stroke Status: Acute (2) Hypertension, malignant Status: Chronic (3) Diabetes mellitus out of control Status: Chronic (4) Noncompliance Status: Chronic Discharge Summary Discharge Physical Exam Allergies: Coded Allergies: No Known Drug Allergies (Unverified , 03/12/13) Vitals & I&Os Vital Signs Date Time Temp Pulse Resp B/P (MAP) Pulse Ox O2 Delivery O2 Flow Rate FiO2 10/30/17 11:03 67 14 144/67 98 Room Air 10/30/17 09:00 97.6 General Appearance: No Apparent Distress, WD/WN, Chronically ill Respiratory: Lungs Clear, Normal Breath Sounds Cardiovascular: Regular Rate, Rhythm, No Edema Neurologic/Psychiatric: Alert, Oriented x3, No Motor/Sensory Deficits, Normal Mood/Affect Hospital Course Hospital course: Patient was admitted after symptoms suggested CVA. Family reported the CVA likely happened 2 weeks ago when she was visiting [facility]. BP and BS were managed aggressively and imaging confirmed left pontine stroke not a tpa candidate. At PT evaluation there was little residual and speech was improved at time of DC and all meds were reviewed and sent into pharmacy and will be moving to and establish with a PCP. Labs (last 24 hrs) Laboratory Tests 10/29/17 20:35: Glucometer 278H 10/30/17 05:33: Glucometer 238H 10/30/17 05:55: White Blood Count 7.4, Red Blood Count 5.50, Hemoglobin 12.5, Hematocrit 35, Mean Corpuscular Volume 63L, Mean Corpuscular Hemoglobin 23L, Mean Corpuscular Hemoglobin Concent 36, Red Cell Distribution Width 16.5H, Platelet Count 321, Mean Platelet Volume 10.5H, Neutrophils (%) (Auto) 64, Lymphocytes (%) (Auto) 30 , Monocytes (%) (Auto) 4, Eosinophils (%) (Auto) 2, Basophils (%) (Auto) 0, Neutrophils # (Auto) 4.7, Lymphocytes # (Auto) 2.2, Monocytes # (Auto) 0.3, Eosinophils # (Auto) 0.1, Basophils # (Auto) 0.0, Sodium Level 139, Potassium Level 4.6, Chloride Level 106, Carbon Dioxide Level 21, Anion Gap 12, Blood Urea Nitrogen 15, Creatinine 0.84, Estimat Glomerular Filtration Rate > 60, BUN/ Creatinine Ratio 18, Glucose Level 246H, Calcium Level 9.9, Corrected Calcium 10.1, Phosphorus Level 4.0, Magnesium Level 1.9, Total Bilirubin 0.6, Aspartate Amino Transf (AST/SGOT) 15, Alanine Aminotransferase (ALT/SGPT) 18, Alkaline Phosphatase 52, Total Protein 6.5, Albumin 3.8, Triglycerides Level 86, Cholesterol Level 169, LDL Cholesterol Direct 93, VLDL Cholesterol 17, HDL Cholesterol 58 Patient resulted labs reviewed. Pending Labs Discussion & Recommendations Discharge Planning: <30 minutes discharge planning Discharge Home Medications: Active Scripts Active Glyburide 2.5 Mg Tablet 2.5 Mg PO BID Aspirin 81 Mg Tab.chew 81 Mg PO DAILY Amlodipine Besylate 5 Mg Tablet 5 Mg PO DAILY Atorvastatin Calcium 20 Mg Tablet 20 Mg PO HS Clopidogrel (Clopidogrel Bisulfate) 75 Mg Tablet 75 Mg PO DAILY Metformin HCl 1,000 Mg Tablet 1,000 Mg PO BID LAST FILLED #60 3-8-18 Instructions to patient/family Please see electronic discharge instructions given to patient. Clinical Quality Measures DVT/VTE Risk/Contraindication: Risk Factor Score Per Nursin RFS Level Per Nursing on Admit: 2=Moderate Problem Qualifiers (1) Diabetes mellitus out of control: Diabetes mellitus type: type 2 Glycemic state: with hyperglycemia Qualified Codes: E11.65 - Type 2 diabetes mellitus with hyperglycemia JOHANN ARCEO DO Oct 30, 2017 10:13
[2017-10-30 11:03] VITALS: BP 144/67
== END 2017-10-30 11:05 | disposition home or self-care (01) | DRG 66 ==
LOC: 4TH 11:15 → ICU 12:59 → 4TH 10-29 09:15
PROVIDERS: ADMIT Family Medicine; ATTEND Family Medicine
DX: I63.9 Cerebral infarction, unspecified (principal); R47.81 Slurred speech; E11.65 Type 2 diabetes mellitus with hyperglycemia; Z79.84 Long term (current) use of oral hypoglycemic drugs; I10 Essential (primary) hypertension; I16.0 Hypertensive urgency; Z91.14 Patient's other noncompliance with medication regimen
CPT/HCPCS: 36415; 70450; 70553; 71046; 80053; 80061; 81000; 82150; 82962; 83690; 83735; 84100; 84443; 84484; 85025; 93306; 93880

== ENCOUNTER 2017-11-21 10:08 | Inpatient (IN) | payer MEDICARE ==
[~2017-11-21] VITALS: Ht 165.1 cm; Wt 68.3 kg
[~2017-11-21 10:08] MED LIST changes: +AMLO5TAB7 PO; +ASPI-999 PO; +ATOR20TA66 PO; +CLOP75TA28 PO; +GLYB2.5T4 PO; +GLYB6TAB3 PO; +METF-399 PO; +SIMV40TA4 PO
[2017-11-21 12:04] VITALS: BP 155/82
[2017-11-21 16:27] VITALS: BP 145/73
[2017-11-21] MEDS: metFORMIN 500 MG (GLUCOPHAGE) TAB PO SCH (16:30)
[2017-11-21] MEDS: glyBURIDE 2.5 MG (MICRONASE) TAB PO SCH (17:16)
--- NOTE | 2017-11-21 19:36 | PM&R Post Admission Assessment ---
Post Admission Physician Asses Date seen by provider: Nov 21, 2017 Time seen by provider: 19:15 The preadmission screen agrees with the post admission assessment that the patient is a good candidate for inpatient rehabilitation. The patient will have a comprehensive program of inpatient rehabilitation with a goal of maximizing level of functional independence prior to discharge home with HHC and family VS an PRISON. The patient will have PT/OT ninety minutes per day, each discipline, five days a week for 5 days for gait, strengthening, conditioning, balance, ADLs, any patient/family/caregiver training as necessary. Speech therapy to do cognitive and speech assessment and treat as indicated. Rehabilitation nursing to assist with bowel, bladder, skin, medication administration, pain management. Dermatologist And Dermatopathologist to assist with discharge planning, community reentry. SCD's for DVT prophylaxis. She appears to be well motivated to participate in three hours of therapy a day. She should be able to tolerate three hours of therapy a day from a medical standpoint. She should benefit from the three hours of therapy a day. She has a reasonable discharge plan, reasonable discharge rehabilitation goals and a supportive family. She has various comorbidities that need to be closely monitored with medications and treatments adjusted on a daily basis as needed. These include: HTN DM Barriers to discharge for this patient who had been independent prior to this are for her to be modified independent to supervision for ADLs and mobility skills prior to discharge home with HHC and family, so as to lessen the burden of the caregivers. Risks for this patient include: 1. Fall 2. Fracture 3. DVT 4. Pulmonary embolism 5. Poorly controlled HTN 6. Skin breakdown 7. Contractures 8. Poorly controlled pain 9. Urinary retention 10. UTI 11. Respiratory infection 12. Aspiration 13. Poorly controlled DM Estimated Length of Stay: 5 days Prognosis: Rehab prognosis appears good for goal of discharge home with Family and HHC modified independent to supervision for ADLs and mobility skills. Date Identified: Nov 21, 2017 Time Identified: [id number] Action Plan to Resolve CSMI: Home meds continued General: Alert, Cooperative, No Acute Distress HEENT: Atraumatic, PERRLA, EOMI, Mucous Memb Moist/[place], Other (some difficulty with communication due to german as a second language) Neck: Supple, No JVD Lungs: Clear to Auscultation Heart: Regular Rate Abdomen: Normal Bowel Sounds, Soft, No Tenderness Extremities: No Edema Neuro: Normal Gait, Strength at 5/5 X4 Ext, Sensation Intact, Other (mild communication difficulty most likely due to Yoruba as asecond language) Psych/Mental Status: Mental Status NL, Mood NL SANDRA SIN MD Nov 21, 2017 19:35
--- NOTE | 2017-11-21 20:16 | HISTORY AND PHYSICAL ---
DATE OF SERVICE: 11/21/2017 ADMISSION HISTORY AND PHYSICAL CHIEF COMPLAINT: Difficulty with speech. HISTORY OF PRESENT ILLNESS: The patient is a 72-year-old female originally from [facility], who has some difficulty with communication as Tunisian is the second language, who is referred here by PCP, Dr. Nicole due to difficulty managing at home alone. Apparently, her daughter lives in [place]. The patient lives in [place]. The patient had been independent prior to this. The patient is a . The patient's main deficit at this time is communication deficit, which may be largely due to Tunisian is the second language. She is independent for bed mobility, transfers and gait without a walker. She appears to be independent for her basic ADLs as well, but will have assessment by speech, PT and OT in a.m. as they are no therapy services here available on Wednesday, which is her admission date day . PAST MEDICAL HISTORY: She was admitted to [facility] on 10/28/2017 after she returned from a trip to [facility] where she stopped taking her blood pressure medications. She had poorly controlled hypertension and imaging studies revealed a left pontine stroke. Her diabetes mellitus was also out of control and there is a history of noncompliance. PAST SURGICAL HISTORY: Noncontributory. ALLERGIES: No known medication allergies. FAMILY HISTORY: Noncontributory. SOCIAL HISTORY: As per above. REVIEW OF SYSTEMS: A 10-point review of systems is significant for some communication difficulty, which may be difficult may be due to Tunisian as the second language. Speech therapy did assess her during her prior stay and felt that she was baseline and she was discharged on 10/30/2017 to home. Her glucometer reading today is 213. MEDICATIONS: 1. ASA 81 mg p.o. every day. 2. Plavix 75 mg p.o. daily. 3. Amlodipine 5 mg p.o. daily. 4. Lipitor 20 mg p.o. at bedtime. 5. Glyburide 2.5 mg p.o. b.i.d. 6. Metformin 1000 mg p.o. b.i.d. PHYSICAL EXAMINATION: GENERAL: Significant for a pleasant female appearing her stated age, alert and oriented, exiting from bathroom on her own with good balance without a gait aid. VITAL SIGNS: She is afebrile, pulse is 67, respirations 16, blood pressure 145/73, O2 sat 96% on room air. HEENT: Vision hearing is grossly intact. No oral lesion is noted. Speech appears functional, but language deficits may be due to Tunisian as the second language. NECK: Supple without mass. HEART: Regular rhythm. CHEST: Clear. ABDOMEN: Soft, nontender, bowel sounds present. EXTREMITIES: No lower leg edema, no calf tenderness. MUSCULOSKELETAL: She has functional active range of motion of all four limbs. NEUROLOGIC: Sensation is grossly intact to touch. Cognition appears intact. She does have some communication deficit as outlined above, but able to follow simple commands and answer simple questions. She has normal strength throughout. Her dynamic standing balance is good. Sensation is grossly intact to touch. IMPRESSION: 1. Left pontine stroke with minimal residual, perhaps some mild aphasia. 2. Hypertension, controlled with medication. 3. Diabetes mellitus, controlled with medication. 4. History of noncompliance. 5. Tunisian as a second language. PLAN: The patient is admitted for a comprehensive program of inpatient stroke rehabilitation with goal of maximizing level of functional independence prior to discharge home with home health care. The patient will have PT and OT 90 minutes per day each discipline 5 days a week for 5 days with the above goals in mind. I believe her stay will be short and she may transition to outpatient speech therapy as indicated. Speech therapy to do cognitive and speech reevaluation and treat as indicated. Rehabilitation nursing to assist with bowel, bladder, skin care and medication administration. student services counselor to assist with discharge planning and community reentry. The patient apparently was planning on going to stay with her daughter in [place], but there was some clich? in this plan. Social work will follow up regarding this. The patient would be a good candidate for an assisted living facility as she might have difficulty living alone at this point. Follow up with Dr. Nicole, PCP as per her schedule. Her estimated length of stay is 5 days. PROGNOSIS: Rehab prognosis appears good for goal of discharging home with family and home health care, modified independent to supervision for ADLs and mobility skills. She may require assistance for medication administration and assisted living facility may be ideal for her if family support limited. DIET: Carb consistent. CODE STATUS: Full code. Job ID: [id number] DocumentID: [id number] Dictated Date: 11/21/2017 19:30:31 Van Owner Operator Date: 11/21/2017 20:15:33 Dictated By: SANDRA SIN MD MTDD
[2017-11-21] MEDS ORDERED: ATORVASTATIN 20 MG (LIPITOR) TABLET PO SCH (21:00)
[2017-11-21] MEDS ORDERED: NON-FORMULARY MEDICATION 1 EA EA (Metformin HCl 1,000 MG) PO SCH (21:00)
[2017-11-22 05:15] VITALS: BP 127/77
[2017-11-22] MEDS: metFORMIN 500 MG (GLUCOPHAGE) TAB PO SCH (06:40)
[2017-11-22] MEDS: glyBURIDE 2.5 MG (MICRONASE) TAB PO SCH (06:40)
[2017-11-22] MEDS ORDERED: ASPIRIN 81 MG CHEW (CHILDREN'S ASA) PO SCH (09:00)
[2017-11-22] MEDS ORDERED: CLOPIDOGREL 75 MG (PLAVIX) TABLET PO SCH (09:00)
[2017-11-22] MEDS ORDERED: amLODIPine 5 MG (NORVASC) TAB PO SCH (09:00)
--- NOTE | 2017-11-22 10:39 | Physical Therapy Evaluation ---
PT Evaluation-General Medical Diagnosis Admission Date Nov 21, 2017 at 10:08 Medical Diagnosis: debility/CVA Onset Date: Oct 28, 2017 Therapy Diagnosis Therapy Diagnosis: slightly impaired balance and ambulation Height/Weight Height (Feet): 5 Height (Inches): 5.00 Weight (Pounds): 150 Weight (Ounces): 9.0 Precautions Precautions/Isolations: Standard Precautions Weight Bear Status Right Lower Extremity: Right Full Weight Bearing Left Lower Extremity: Left Full Weight Bearing Referral Physician: Nikita Reason for Referral: Evaluation/Treatment Medical History Pertinent Medical History: CAD, DM, HTN Reviewed History: Yes Social History Home: Multilevel Current Living Status: Alone Entry Into Home: Level Entry PT Steps Inside Home: 10 10 steps to the basement Prior/Core FIM Prior Level of Function Functional [place] Measure 0=Not Assessed/NA 4=Minimal Assistance 1=Total Assistance 5=Supervision or Setup 2=Maximal Assistance 6=Modified [place] 3=Moderate Assistance 7=Complete [place] Bed Mobility: 7 Transfers (B,C,W/C) (FIM): 7 Gait: 7 PT Evaluation-Current Subjective pt standing and walking around room pre tx, agrees to PT, no pain to report Pt/Family Goals to be independent at home Objective Patient Orientation: Normal For Age ROM/Strength ROM Lower Extremities WNL Strenght Lower Extremities 5/5 grossly bilaterally Neuromuscular (Tone, Coordination, Reflexes) no difficulty with giraldo slide test bilaterally Sensory Vision: Wears Glasses Hearing: Functional Sensation Right Lower Extremit: Intact Sensation Left Lower Extremity: Intact Transfers Functional [place] Measure 0=Not Assessed/NA 4=Minimal Assistance 1=Total Assistance 5=Supervision or Setup 2=Maximal Assistance 6=Modified [place] 3=Moderate Assistance 7=Complete IndependenceIRFPAI Quality Coding Scale 6 Independent with activity with or without an assistive device 5 Patient requires set up or clean up by helper. Patient completes activity by themselves 4 Supervision or touching assist (CGA). [place] provide cues , steadying assist 3 The helper provides less than half the effort to complete the activity 2 The helper provides more than half the effort to complete the activity 1 Dependent. The helper does all the effort to complete an activity 7 Patient refused to complete or attempt activity 9 The patient did not perform the activity before the current illness or injury 88 Not attempted due to Medical conditions or safety concerns Transfers (B, C, W/C) (FIM): 7 Scootin Rollin Roll Left to Right (QC): 6 Supine to/from Sit: 7 Sit to/from Stand: 7 Sit to Lying (QC): 6 Lying to Sitting/Side of Bed(Q: 6 Sit to Stand (QC): 6 Chair/Bpb-hr-Glynl Xfer(QC): 6 Car Transfer (QC): 6 Pt is independent w/ all transfers Gait Does the Patient Walk?: Yes Mode of Locomotion: Walk Anticipated Mode of Locomotion: Walk Gait (FIM): 7 Walk 10 feet (QC): 6 Walk 50 ft with 2 Turns(QC): 6 Walk 150 ft (QC): 6 Walking 10ft/uneven surface-QC: 6 Distance: 120',60',250' Gait Level of Assist: 7 Gait Assistive Device: None Comments/Gait Description Pt ambulates to/from gym and around gym independently, gait is steady w/ good speed and stride length, pt notes she sometimes feels unsteady/ "wobbly", but shows no LOB Wheelchair Training Does the Pt Use a Wheelchair?: No Stairs Stairs (FIM): 7 #of Steps: 12 Level of Assist: 7 1 Step (curb) (QC): 6 4 Steps (QC): 6 12 Steps (QC): 6 pt able to ascend/descend 12 steps independently w/ reciprocal pattern, no handrail Balance Sitting Static: Normal Sitting Dynamic: Normal Standing Static: Normal Standing Dynamic: Good Picking up an Object (QC): 6 Treatment airex pad marches 3x20, calf raises 2x10, step over airex x10, sit<->stand 2x10 , NuStep 15 min Assessment/Needs Pt is independent w/ all transfers, gait, and stairs. De Paz balance test 55/56, w / slight difficulty in SLS, Rehab Potential: Good PT Residential Goals Residential Goals PT Prop And Scenery Maker Goals Time Frame: Nov 29, 2017 1. Patient will score 56/56 on the [place] Balance Scale 2. Patient will ambulate community distances over community surfaces (curbs, ramps, uneven surfaces) to improve functional mobility PT Plan Problem List Problem List: Activity Tolerance, Safety, Balance, Gait Treatment/Plan Treatment Plan: Continue Plan of Care Treatment Plan: Education, Functional Activity Baljit, Group Therapy, Gait, Safety Treatment Duration: Nov 29, 2017 Frequency: At least 5 of 7 days/Wk (IRF) Estimated Hrs Per Day: 1.5 hours per day Patient and/or Family Agrees t: Yes Safety Risks/Education Patient Education: Gait Training, Transfer Techniques, Steps, Correct Positioning, Safety Issues Teaching Recipient: Patient Teaching Methods: Demonstration, Discussion Response to Teaching: Reinforcement Needed Discharge Recommendations Plan Patient will perform balance and endurance training, functional strengthening, gait training, and education, to improve functional mobility and independence at home. Therapy D/C Recommendations: Home w/ Family Support Time/GCodes Time In: 1000 Time Out: 1100 Total Billed Treatment Time: 60 Total Billed Treatment 1 visit EVL 30' GT 10' EX 20' SATNAM BRONSON PT Nov 22, 2017 10:39
--- NOTE | 2017-11-22 14:32 | PM & R (SOAP) Progress Note ---
Subjective This was a face to face visit with the patient. Date Seen by Provider: Nov 22, 2017 Time Seen by Provider: 14:30 Subjective/Events-last exam Patient was seen by therapy staff and reported to be Modified Independent to Independent for adls and mobility skills SW and Therapy staff recs discharge to home today Patients daughter available for transport Meds reviewed again Date Identified: Nov 22, 2017 Time Identified: 14:30 Medication Intervention: Home meds reconciled and reviewed Objective Physician Exam Last Set of Vital Signs Vital Signs Date Time Temp Pulse Resp B/P (MAP) Pulse Ox O2 Delivery O2 Flow Rate FiO2 11/22/17 09:00 Room Air 11/22/17 05:15 98.1 63 16 127/77 (94) 98 Capillary Refill : I&O Intake and Output 11/22/17 00:00 Intake Total 600 ml Output Total 2 ml Balance 598 ml Intake Oral 600 ml Output Urine Total 2 ml Daily Weight Change No General: Alert, Cooperative, No Acute Distress HEENT: Atraumatic, PERRLA, EOMI, Mucous Memb Moist/Nikolai, Other (some difficulty with communication due to uruguayan as a second language) Neck: Supple, No JVD Lungs: Clear to Auscultation Heart: Regular Rate Abdomen: Normal Bowel Sounds, Soft, No Tenderness Extremities: No Edema Neuro: Normal Gait, Strength at 5/5 X4 Ext, Sensation Intact, Other (mild communication difficulty most likely due to Tuvaluan as asecond language) Psych/Mental Status: Mental Status NL, Mood NL Results Lab Data Laboratory Tests 11/21/17 16:29: Glucometer 213H 11/21/17 20:53: Glucometer 182H 11/22/17 05:04: Glucometer 102 Assessment/Plan Assessment and Plan Home today with daughter F/U with PCP Consider placement aT AN elan OR HOME WITH DAUGHTER RATHER THEN HOME ALONE IF MEDS AND COMPLIANCE AN ISSUE Co-Morbidities that are continuing to impact the rehab process: (include details ) SANDRA SIN MD Nov 22, 2017 14:32
--- NOTE | 2017-11-22 15:08 | ST Cognitive Linguistic Eval ---
Speech Evaluation-General Medical Diagnosis debility/CVA Onset Date: Oct 28, 2017 Therapy Diagnosis Therapy Diagnosis: Cognition Precautions Precautions/Isolations: Standard Precautions Referral Referring Physician: Dr. Shelton Reason for Referral: Evaluation/Treatment Medical History Pertinent Medical History: CAD, DM, HTN Reviewed History: Yes Social History Current Living Status: Alone Speech PLF-Current Status Prior Level of Function pt was independent living alone Subjective Pt up in chair. Pleasant and cooperative. Pain Numeric Pain Scale: 0-No Pain Language Eval: Auditory Comprehends Simple Yes/No Ques: Mild Follows 1-Step Commands: Functional Follows Complex Directions: Moderate Follows General Conversations: Moderate Deficits most likely due to language barrier. Language Eval: Verbal Language Completes Spontaneous Greeting: Functional Requests Basic Needs: Functional States Basic Personal Info: Functional Difficult to accurately assess due to language barrier. Language Evaluation: Reading NT Objective Cognitive Domain Attention: WNL Memory: WNL Difficult to determine due to language barrier. Objective Results Cognitive functioning is unable to be accurately assessed due to language barrier. The pt could recall the 3 words with remote delay. Communication/Social Cognition Comprehension: 4 Expression: 4 Social Interaction: 7 Problem Solvin Memory: 7 Speech Patient Assess Expression of Ideas/Wants: Expression (4) Understanding Verbal Content: Understands (4) Brief Interview-Mental Status: Yes Repetition of Three Words: Three (3) Temporal Orientation: Year: Correct (3) Temporal Orientation: Month: Accurate within 5 days(2) Temporal Orientation: Day: Correct (1) Recall : Wear to say "Sock": Yes, no cue required (2) Recall : Color: Yes, no cue required (2) Recall : Bed: Yes, no cue required (2) Speech Short Term Goals Short Term Goals Short Term Goals no STGs established as no skilled ST indicated. Speech Young Adult Librarian Goals Young Adult Librarian Goals no LTGs established due to skilled ST not indicated. Speech-Plan Patient/Family Goals Patient/Family Goals: to return home Treatment Plan Speech Therapy Treatment Plan: Discontinue ST dc from skilled ST Pt was to be dc'd to home today as pt did not need a Rehab stay. Frequency: Modified Program (IRF) (0) Estimated Hrs Per Day: Other (0) Rehab Potential: Fair Pt/Family Agrees to Plan: Yes Safety Risks/Education Teaching Recipient: Patient Teaching Methods: Discussion Response to Teaching: Verbalize Understanding Time Speech Therapy Time In: 13:10 Speech Therapy Time Out: 13:30 Total Billed Time: 20 Billed Treatment Time 1, SPSNDCOMP ARTIE Jaquez Nov 22, 2017 15:08
--- NOTE | 2017-11-22 15:12 | Occupational Therapy Eval ---
OT Evaluation-General/PLF Medical Diagnosis Admission Date Nov 21, 2017 at 10:08 Medical Diagnosis: debility/CVA Onset Date: Oct 28, 2017 Therapy Diagnosis Therapy Diagnosis: Weakness Height/Weight Height (Feet): 5 Height (Inches): 5.00 Weight (Pounds): 150 Weight (Ounces): 9.0 Precautions Precautions/Isolations: Standard Precautions Safety Interventions: Reorient-PRN Weight Bear Status Weight Bearing Restriction: Weight Bearing/Tolerated Referral Physician: Nikita Referral Reason: Activity Tolerance, Self Care, Evaluation/Treatment, Strengthening/ROM Medical History Pertinent Medical History: CAD, DM, HTN Additional Medical History Pt. in [facility] [place]Note 2] and had a CVA. Pt. does demonstrate some difficulty conveying story, as Portuguese is her second language. Current History Pt. was at home but came to rehab for strengthening. Reviewed History: Yes Social History Home: Multilevel Current Living Status: Alone Entry Into Home: Level Entry Steps Inside Home: 10 Pt. reports that steps are only to her basement. States that her treadmill is down there, but not her washer or dryer. ADL-Prior Level of Function ADL PLOF Comments Pt. reports that she was fully independent. DME/Equipment: Shower DME/Equipment Comments Pt. does not use equipment. Drive Self: Yes OT Current Status Subjective No pain reported. Pt. states that she has some difficulty "writing" with right hand. She is predominately left handed, but writes with right hand. States that she gets overall "weakness" at times. Appearance Pt. is up in room. Alert and oriented. Mental Status/Objective Patient Orientation: Person, Place Current Glasses/Contacts: Yes Hand Dominance: Left Upper Extremity ROM WFL Upper Extremity Strength Left UE- 5/5 Right UE- 4/5 ADL-Treatment Functional [place] Measure 0=Not Assessed/NA 4=Minimal Assistance 1=Total Assistance 5=Supervision or Setup 2=Maximal Assistance 6=Modified [place] 3=Moderate Assistance 7=Complete IndependenceIRFPAI Quality Coding Scale 6 Independent with activity with or without an assistive device 5 Patient requires set up or clean up by helper. Patient completes activity by themselves 4 Supervision or touching assist (CGA). [place] provide cues , steadying assist 3 The helper provides less than half the effort to complete the activity 2 The helper provides more than half the effort to complete the activity 1 Dependent. The helper does all the effort to complete an activity 7 Patient refused to complete or attempt activity 9 The patient did not perform the activity before the current illness or injury 88 Not attempted due to Medical conditions or safety concerns Grooming (FIM): 7 Oral Hygiene (QC): 6 Bathing (FIM): 6 Shower/Bathe Self (QC): 6 Upper Body Dressing (FIM): 7 Upper Body Dressing (QC): 6 Lower Body Dressing (FIM): 7 Lower Body Dressing (QC): 6 On/Off Footwear (QC): 6 Toileting (FIM): 7 Toileting Hygiene (QC): 6 Transfers (B, C, W/C) (FIM): 7 Toilet/Commode Transfer (FIM): 7 Toilet Transfer (QC): 6 Shower Transfer (FIM): 6 Other Treatments Pt. is able to retrieve all clothing this morning. Demonstrates ability to bathe and dress independently. Ambulates without assistive device with independence to therapy gym. Completed fine motor assessment, including writing activity. Pt. demonstrates no difficulty to this therapist that is fully noted. Able to write with pen legibly, and in all places that are asked of her. Ambulated back to room with no needs. Education OT Patient Education: Correct positioning, Energy conservation, Modified ADL techniques, Progress toward Goal/Update tx plan, Purpose of tx/functional activities, Reviewed precautions, Rehab process, Transfer techniques Teaching Recipient: Patient Teaching Methods: Demonstration, Discussion Response to Teaching: Verbalize Understanding, Return Demonstration OT Short Term Goals Short Term Goals 1=Demonstrate adherence to instructed precautions during ADL tasks. 2=Patient will verbalize/demonstrate understanding of assistive devices/ modifications for ADL. 3=Patient will improve strength/tolerance for activity to enable patient to perform ADL's. OT Sanitarian Goals Residential Goals Time Frame: Nov 27, 2017 Eating (FIM): 7 Eating (QC): 6 Groomin Oral Hygiene (QC): 6 Bathing(FIM): 6 Shower/Bathe Self (QC): 6 Upper Body Dressing(FIM): 7 Upper Body Dressing (QC): 6 Lower Body Dressing(FIM): 7 Lower Body Dressing (QC): 6 On/Off Footwear (QC): 6 Toileting(FIM): 7 Toileting Hygiene (QC): 6 Transfers (B,C,W/C) (FIM): 7 Toilet/Commode Transfer(FIM): 7 Toilet/Commode Transfer (QC): 6 Shower Transfer(FIM): 6 Additional Goals: 1-Demonstrate ADL Tasks, 2-Verbalize Understanding, 3- ImproveStrength/Baljit 1=Demonstrate adherence to instructed precautions during ADL tasks. 2=Patient will verbalize/demonstrate understanding of assistive devices/ modifications for ADL. 3=Patient will improve strength/tolerance for activity to enable patient to perform ADL's. OT Education/Plan Problem List/Assessment Assessment: Decreased Activ Tolerance Discharge Recommendations Plan/Recommendations: Continue POC Therapy D/C Recommendations: Home w/ Family Support Treatment Plan/Plan of Care Treatment,Training & Education: Yes Patient would benefit from OT for education, treatment and training to promote independence in ADL's, mobility, safety and/or upper extremity function for ADL' s. Plan of Care: ADL Retraining Treatment Duration: Nov 27, 2017 Frequency: Modified Program (IRF) Estimated Hrs Per Day: 1.5 hours per day Agreement: Yes Rehab Potential: Good Time/GCodes Start Time: 11:00 Stop Time: 11:50 Total Time Billed (hr/min): 50 Billed Treatment Time 1, EVL x 15minutes, ADL x 20minutes, FA x 15minutes CAMERON GARCIA OT Nov 22, 2017 15:12
--- NOTE | 2017-11-22 15:16 | Physical Therapy Daily Note ---
PT Daily Note-Current Subjective pt sitting at edge of bed pre tx, agrees to PT, no pain to report Appearance pt w/ daughter and [employer] LPN in common area post tx, all needs met Mental Status Patient Orientation: Normal For Age Transfers Functional [place] Measure 0=Not Assessed/NA 4=Minimal Assistance 1=Total Assistance 5=Supervision or Setup 2=Maximal Assistance 6=Modified [place] 3=Moderate Assistance 7=Complete IndependenceIRFPAI Quality Coding Scale 6 Independent with activity with or without an assistive device 5 Patient requires set up or clean up by helper. Patient completes activity by themselves 4 Supervision or touching assist (CGA). [place] provide cues , steadying assist 3 The helper provides less than half the effort to complete the activity 2 The helper provides more than half the effort to complete the activity 1 Dependent. The helper does all the effort to complete an activity 7 Patient refused to complete or attempt activity 9 The patient did not perform the activity before the current illness or injury 88 Not attempted due to Medical conditions or safety concerns Transfers (B, C, W/C) (FIM): 7 Sit to/from Stand: 7 Weight Bearing Right Lower Extremity: Right Full Weight Bearing Left Lower Extremity: Left Full Weight Bearing Gait Training Does the Patient Walk?: Yes Gait (FIM): 7 Distance: 200' Gait Level of Assist: 7 Gait Assistive Device: None pt ambulates to gym independently Exercises Standing: Sit to Stand Standing Reps: 20 Neuromuscular airex standing balance w/ ball toss x4min SLS on airex pad x4 min heel-toe walking while handing ball [id number] 40 ft Treatments balance training, functional strengthening Assessment Current Status: Fair Progress pt demonstrates good static and dynamic balance w/ decreased SLS ability PT Short Term Goals Short Term Goals Time Frame: Nov 22, 2017 PT Head Of Store Operations Goals Half-Way Goals PT Half-Way Goals Time Frame: Nov 29, 2017 Rollin PT Plan Problem List Problem List: Functional Strength, Balance, Gait Treatment/Plan Treatment Plan: Continue Plan of Care Treatment Plan: Education, Functional Activity Baljit, Group Therapy, Gait, Safety Treatment Duration: Nov 29, 2017 Frequency: At least 5 of 7 days/Wk (IRF) Estimated Hrs Per Day: 1.5 hours per day Patient and/or Family Agrees t: Yes Safety Risks/Education Patient Education: Gait Training Teaching Recipient: Patient Teaching Methods: Demonstration, Discussion Response to Teaching: Reinforcement Needed Time/GCodes Time In: 1430 Time Out: 1445 Total Billed Treatment Time: 15 Total Billed Treatment 1 visit FA 15' BARB METZGER PT Nov 22, 2017 15:16
--- NOTE | 2017-11-22 15:30 | Therapy Team Discharge Summary ---
Therapy Discharge Summary Discharge Recommendations Date of Discharge 11/22/17 Therapy D/C Recommendations: Home w/ Family Support Physical Therapy Pt admitted to rehab unit for debility s/p CVA. Upon admission pt able to perform all transfers and ambulation (including 150' or more, 50' w/ 2 turns of 90 degrees, and 10' over uneven surface) independently w/o AD. Pt was able to ascend/descend 12 steps w/ reciprocal pattern w/o use of handrails independently. Pt scored 55/56 on [place] Balance Scale. Pt was seen for evaluation the morning of 11/22/17, seen for another PT session that afternoon, and discharged soon after due to pt's functional independence. Pt goals were not met due to length of stay. Goals included scoring 56/56 on the [place] Balance Scale, and be able to ambulate community distances over community surfaces ( curbs, ramps, uneven surfaces) to improve functional mobility. Occupational Therapy Decreased Activ Tolerance PT Usp Goals Working Second Hand Goals PT Working Second Hand Goals Time Frame: Nov 29, 2017 OT Working Second Hand Goals Usp Goals Time Frame: Nov 27, 2017 Eating (FIM): 7 Eating (QC): 6 Oral Hygiene (QC): 6 Grooming(FIM): 7 Bathing(FIM): 6 Shower/Bathe Self (QC): 6 Upper Body Dressing(FIM): 7 Upper Body Dressing (QC): 6 Lower Body Dressing(FIM): 7 Lower Body Dressing (QC): 6 On/Off Footwear (QC): 6 Toileting(FIM): 7 Toileting Hygiene (QC): 6 Transfers (B,C,W/C) (FIM): 7 Toilet/Commode Transfer(FIM): 7 Toilet/Commode Transfer (QC): 6 Shower Transfer(FIM): 6 Additional Goals: 1-Demonstrate ADL Tasks, 2-Verbalize Understanding, 3- ImproveStrength/Baljit 1=Demonstrate adherence to instructed precautions during ADL tasks. 2=Patient will verbalize/demonstrate understanding of assistive devices/ modifications for ADL. 3=Patient will improve strength/tolerance for activity to enable patient to perform ADL's. BARB METZGER PT Nov 22, 2017 15:30
[2017-11-22 16:15] VITALS: BP 127/77
--- NOTE | 2017-11-22 16:32 | Occupational Ther Daily Note ---
OT Current Status-Daily Note Subjective No pain reported. Appearance Pt up in chair listening to phone with ear buds. Agrees to work with OT. Mental Status/Objective Patient Orientation: Person, Place Functional [place] Measure 0=Not Assessed/NA 4=Minimal Assistance 1=Total Assistance 5=Supervision or Setup 2=Maximal Assistance 6=Modified [place] 3=Moderate Assistance 7=Complete [place] ADL-Treatment Functional [place] Measure 0=Not Assessed/NA 4=Minimal Assistance 1=Total Assistance 5=Supervision or Setup 2=Maximal Assistance 6=Modified [place] 3=Moderate Assistance 7=Complete IndependenceIRFPAI Quality Coding Scale 6 Independent with activity with or without an assistive device 5 Patient requires set up or clean up by helper. Patient completes activity by themselves 4 Supervision or touching assist (CGA). [place] provide cues , steadying assist 3 The helper provides less than half the effort to complete the activity 2 The helper provides more than half the effort to complete the activity 1 Dependent. The helper does all the effort to complete an activity 7 Patient refused to complete or attempt activity 9 The patient did not perform the activity before the current illness or injury 88 Not attempted due to Medical conditions or safety concerns Transfers (B, C, W/C) (FIM): 7 Other Treatment Pt. ambulated to therapy gym with independence. Tolerated armbike x 10minutes at mod resistance for overall increased strength. Pt. then tolerated hand squeeze and individual finger squeezes with right hand using blue therapy sponge. Educated to continue this at home to increase overall strength. Pt. then completed 4 bilateral UE exercises x 15 reps each with red theraband in all planes to increase overall strength of right UE and endurance. Pt. given handout and encouraged to do these on her own, when not in therapy. Pt. verbalizes understanding. Pt. ambulated back to room independently and all needs met. Education OT Patient Education: Correct positioning, Exercise program, Progress toward Goal/Update tx plan, Purpose of tx/functional activities, Reviewed precautions, Rehab process Teaching Recipient: Patient Teaching Methods: Demonstration, Discussion Response to Teaching: Verbalize Understanding, Return Demonstration OT Short Term Goals Short Term Goals 1=Demonstrate adherence to instructed precautions during ADL tasks. 2=Patient will verbalize/demonstrate understanding of assistive devices/ modifications for ADL. 3=Patient will improve strength/tolerance for activity to enable patient to perform ADL's. OT Manager In Training Goals [facility] Goals Time Frame: Nov 27, 2017 Eating (FIM): 7 Eating (QC): 6 Groomin Oral Hygiene (QC): 6 Bathing(FIM): 6 Shower/Bathe Self (QC): 6 Upper Body Dressing(FIM): 7 Upper Body Dressing (QC): 6 Lower Body Dressing(FIM): 7 Lower Body Dressing (QC): 6 On/Off Footwear (QC): 6 Toileting(FIM): 7 Toileting Hygiene (QC): 6 Transfers (B,C,W/C) (FIM): 7 Toilet/Commode Transfer(FIM): 7 Toilet/Commode Transfer (QC): 6 Shower Transfer(FIM): 6 Additional Goals: 1-Demonstrate ADL Tasks, 2-Verbalize Understanding, 3- ImproveStrength/Baljit 1=Demonstrate adherence to instructed precautions during ADL tasks. 2=Patient will verbalize/demonstrate understanding of assistive devices/ modifications for ADL. 3=Patient will improve strength/tolerance for activity to enable patient to perform ADL's. OT Education/Plan Problem List/Assessment Assessment: Impaired Coordination Discharge Recommendations Plan/Recommendations: Continue POC Therapy D/C Recommendations: Home w/ Family Support Treatment Plan/Plan of Care Treatment,Training & Education: Yes Patient would benefit from OT for education, treatment and training to promote independence in ADL's, mobility, safety and/or upper extremity function for ADL' s. Plan of Care: ADL Retraining, UE Funct Exercise/Act Treatment Duration: Nov 27, 2017 Frequency: Modified Program (IRF) Estimated Hrs Per Day: 1.5 hours per day Agreement: Yes Rehab Potential: Good Time/GCodes Start Time: 13:35 Stop Time: 14:00 Total Time Billed (hr/min): 25 Billed Treatment Time 1, Ex x 2 CAMERON GARCIA OT Nov 22, 2017 16:32
--- NOTE | 2017-11-22 20:42 | Consultation ---
History of Present Illness History of Present Illness Patient Consulted On(nagi/time) 11/22/17 20:36 Date Seen by Provider: Nov 22, 2017 Time Seen by Provider: 12:35 History of Present Illness This is a 72 year old female with a history of a left pontine stroke who was admitted on 10/28/17. It was recommended to have an acute rehab evaluation at that time but the patient wanted to go home with her family to the area. The patient has been requesting to go home but the daughter has ongoing concerns about weakness, numbness and possibly falling. She also reports ongoing speech difficulties with intermittent confusion. It was decided to admit her to acute rehab for further evaluation and treatment. Allergies and Home Medications Allergies Coded Allergies: No Known Drug Allergies (Unverified , 03/12/13) Home Medications Amlodipine Besylate 5 Mg Tablet, 5 MG PO DAILY Prescribed by: SONYA SHETTY on 10/29/17 1355 Aspirin 81 Mg Tab.chew, 81 MG PO DAILY Prescribed by: SONYA SHETTY on 10/29/17 1355 Atorvastatin Calcium 20 Mg Tablet, 20 MG PO HS Prescribed by: SONYA SHETTY on 10/29/17 1355 Clopidogrel Bisulfate 75 Mg Tablet, 75 MG PO DAILY Prescribed by: SONYA SHETTY on 10/29/17 1355 Glyburide 2.5 Mg Tablet, 2.5 MG PO BID Prescribed by: JOHANN ARCEO on 10/30/17 1012 Metformin HCl 1,000 Mg Tablet, 1,000 MG PO BID LAST FILLED #60 05-06-17 Prescribed by: SONYA SHETTY on 10/29/17 1355 Patient Home Medication List Home Medication List Reviewed: Yes Past Cwuupda-Wqldep-Fetpip Hx Patient Social History Smoking Status: Never a Smoker Recent Foreign Travel: Yes Recent Hopitalizations: No Immunizations Up To Date Date of Influenza Vaccine: Nov 17, 2017 Seasonal Allergies Seasonal Allergies: No Past Medical History Surgeries: No Respiratory: No Pneumonia Currently Using CPAP: No Currently Using BIPAP: No Cardiac: Yes Neurological: Yes Genitourinary: No Gastrointestinal: No Musculoskeletal: No Endocrine: Yes Diabetes, Non-Insulin dep Cancer: No Psychosocial: No Integumentary: No Blood Disorders: No Family Medical History No Pertinent Family Hx Review of Systems-General Constitutional: weakness EENTM: No see HPI, No no symptoms reported, No ear discharge, No hearing loss, No ear pain, No blurred vision, No double vision, No eye pain, No tearing, No vision loss, No dental problems, No hoarseness, No mouth pain, No mouth swelling , No epistaxis, No nose congestion, No nose pain, No throat pain, No throat swelling, No other Respiratory: No no symptoms reported, No see HPI, No cough, No dyspnea on exertion, No hemoptysis, No orthopnea, No phlegm, No short of breath, No stridor , No wheezing, No other Cardiovascular: No no symptoms reported, No see HPI, No chest pain, No edema, No Hx of Intervention, No palpitations, No syncope, No vascular heart diseas, No other Gastrointestinal: No RUQ, No LUQ, No RLQ, No LLQ, No no symptoms reported, No see HPI, No abdominal pain, No constipation, No diarrhea, No dysphagia, No hematemesis, No heartburn, No jaundice, No loss of appetite, No melena, No nausea, No vomiting, No other Genitourinary: No no symptoms reported, No see HPI, No decreased output, No discharge, No dysuria, No frequency, No hematuria, No hesitancy, No incontinence , No nocturia, No pain, No other Musculoskeletal: muscle weakness Skin: other (bruising) Psychiatric/Neurological: Numbness (right side), Weakness, Other (speech difficulties) Physical Exam-General Problems Physical Exam Vital Signs Vital Signs - First Documented 11/21/17 11/21/17 11:31 12:04 Temp 97.6 Pulse 74 Resp 16 B/P (MAP) 155/82 (106) Pulse Ox 97 O2 Delivery Room Air Capillary Refill : General Appearance: WD/WN, no apparent distress Neck: supple Respiratory: lungs clear Cardiovascular: regular rate, rhythm, gallop/S4 Gastrointestinal: normal bowel sounds, non tender, soft Back: no CVA tenderness Extremities: non-tender, normal inspection, no calf tenderness Neurologic/Psychiatric: alert, oriented x 3, facial droop (mild), motor weakness Skin: warm/dry Comments Laboratory Tests 11/21/17 20:53: Glucometer 182H 11/22/17 05:04: Glucometer 102 Assessment/Plan Assessment/Plan Admission Diagnosis/Plan 1. Left Pontine stroke with resulting weakness and aphasia--admitted for PT/OT and ST 2. Hypertension--resume home meds 3. DMII--resume home meds with accuchecks Clinical Quality Measures DVT/VTE Risk/Contraindication: Risk Factor Score Per Nursin RFS Level Per Nursing on Admit: 2=Moderate SONYA SHETTY DO Nov 22, 2017 8:41 pm
--- NOTE | 2017-11-22 22:08 | Individualized Plan of Care ---
Individualized Plan of Care Rehab Nursing IPOC Order Admission Date Nov 21, 2017 at 10:08 Current Orders Orders Aspirin Chewable Tablet (Baby Aspirin Ch (11/22/17 09:00) Atorvastatin Tablet (Lipitor Tablet) (11/21/17 21:00) Clopidogrel Tablet (Plavix Tablet) (11/22/17 09:00) Glyburide Tablet (Micronase Tablet) (11/21/17 17:00) Amlodipine Tablet (Norvasc Tablet) (11/22/17 09:00) (Nf) Metformin Hcl (11/21/17 21:00) Admission Order(Inpt,Obs,Sdc) (11/21/17 10:36) Code/Resuscitation (11/21/17 10:36) Initiate Admission Nursing Pro .admission (11/21/17 10:36) Isolation Central Supply Req (11/21/17 10:36) Cho 60g/M 1snack (16-2000 [place]) (11/21/17 Lunch) Accucheck Bid DBID (11/21/17 10:36) Consult Physician (11/21/17 10:36) Metformin Tablet (Glucophage Tablet) (11/21/17 17:00) Ambulate 08,12,20 (11/21/17 11:29) Sequential Compression Device 08,20 (11/21/17 11:29) Dvt/Vte Risk - Notifiy Physici 08 (11/21/17 11:29) Forming Press Operator-Inpt Rehab Con (11/21/17 19:20) Rehab Nursing Orders-Ipoc (11/21/17 19:20) Physical Therapy Rehab Orders (11/21/17 19:20) Occupational Therapy Rehab Ord (11/21/17 19:20) Speech Therapy Rehab Orders (11/21/17 19:20) Patient Visit (11/22/17 ) Pt Eval Low Complexity (11/22/17 ) Gait Training, Ea 15 Min (11/22/17 ) Exercise Therap, Ea 15 Min (11/22/17 ) Attending Discharge Inpt/Inobs (11/22/17 14:25) Patient Visit (11/22/17 ) Speech Sound Lang Comp (11/22/17 ) Patient Visit (11/22/17 ) Functional Activities, Ea 15 (11/22/17 ) Rehab Nursing Orders: Ongoing Assess. of Cognitive Status, Ongoing Assess. of Function Status, Disease Management & Educaiton, DVT Prophylaxis, Fluid/ Electrolyte/Nutrition Mgmt, Infection Prevention, Medication Management & Education, Management of Risks & Complications, Management of Skin Intergrity, Nutrition Management, Pain Management, Patient/Family Support PT IPOC Problem List: Functional Strength, Balance, Gait Treatment Plan: Continue Plan of Care Education, Functional Activity Baljit, Group Therapy, Gait, Safety Treatment Duration: Nov 29, 2017 Frequency: At least 5 of 7 days/Wk (IRF) Estimated Hrs Per Day: 1.5 hours per day OT IPOC Problems: Impaired Coordination OT Treatment, Training and Edu: Yes Plan of Care: ADL Retraining, UE Funct Exercise/Act Treatment Duration: Nov 27, 2017 Frequency: Modified Program (IRF) Estimated Hrs Per Day: 1.[address] IPOC Speech Therapy Treatment Plan: Discontinue ST, Goals Met Treatment Duration: Nov 22, 2017 Frequency: Modified Program (IRF) Estimated Hrs Per Day: Other Forming Press Operator/Case Mgmt Forming Press Operator/Case Managemen: Discharge Planning, Patient/Family Counseling Dietitian/Hydraulic Press Operator Dietitian/Hydraulic Press Operator to monitor nutritional status and make changes and/or recommendations as needed and work with speech pathology on dietary upgrades as the occur. Physician IPOC Medical Issues being managed closely and that require the 24 hour availability of a physician: HTN DM [facility] code 01.4 Etiologic DX Acute left abdias stroke Medical Issues: Other (List) (as per above) Brief Synthesis of Preadmission Screen, Post-Admission Evaluation, and Therapy Evaluations: 72 yo female who had been Independent who sustained a left abdias stroke with change in mental status now resolved.has difficulty with communication but most likely due to Engish being a second language referred from home but patient found to be Modified Indepndent for basic adls amd mobility skills Patients daughter presented to take patient home as so high level Ambulates without a gait aide and has good strength throughout and good balance.Patient may benefit from an CYNTHIA as she has shaikh hx of HTN and DM as well as noncompliance and Nurising would be available at an [facility] to assist with meds if Patients daughter unable to provide this assistance as patient lives alone and daughter lives [place] [facility] [place] [facility]osis: Good Anticipated Length of Stay: 11-22-17 F/U with daughter and PCP re CYNTHIA placement or home with daughter if patientunabel/unwilling to take her home meds Anticipated d/c Destination: Home with daughter SANDRA SIN MD Nov 22, 2017 22:08
--- NOTE | 2017-11-23 11:37 | Therapy Team Discharge Summary ---
Therapy Discharge Summary Discharge Recommendations Date of Discharge Nov 22, 2017 at 16:15 Therapy D/C Recommendations: Home w/ Family Support Occupational Therapy Pt. seen by occupational therapy briefly on one day for assessment of ADL and functional capabilities. Pt. is able to perform all ADLs with independence/Mod I. Pt. demonstrates difficulty with writing per her, but is still able to functionally write with testing. Pt. does demonstrate slight noted weakness in right UE, but is left hand dominate. Pt. able to transfer and ambulate with no difficulty, and no loss of balance. Pt. discharged home with daughter support. No Skilled OT Needs ID'd PT Bulk Pallet Builder Goals Bulk Pallet Builder Goals PT Bulk Pallet Builder Goals Time Frame: Nov 29, 2017 OT Bulk Pallet Builder Goals Bulk Pallet Builder Goals Time Frame: Nov 27, 2017 Eating (FIM): 7 (met) Eating (QC): 6 (met) Oral Hygiene (QC): 6 (met) Grooming(FIM): 7 (met) Bathing(FIM): 6 (met) Shower/Bathe Self (QC): 6 (met) Upper Body Dressing(FIM): 7 (met) Upper Body Dressing (QC): 6 (met) Lower Body Dressing(FIM): 7 (met) Lower Body Dressing (QC): 6 (met) On/Off Footwear (QC): 6 (met) Toileting(FIM): 7 (met) Toileting Hygiene (QC): 6 (met) Transfers (B,C,W/C) (FIM): 7 (met) Toilet/Commode Transfer(FIM): 7 (met) Toilet/Commode Transfer (QC): 6 (met) Shower Transfer(FIM): 6 (met) Additional Goals: 1-Demonstrate ADL Tasks, 2-Verbalize Understanding, 3- ImproveStrength/Baljit 1=Demonstrate adherence to instructed precautions during ADL tasks. 2=Patient will verbalize/demonstrate understanding of assistive devices/ modifications for ADL. 3=Patient will improve strength/tolerance for activity to enable patient to perform ADL's. Speech Bulk Pallet Builder Goals Bulk Pallet Builder Goals no LTGs established due to skilled ST not indicated. CAMERON GARCIA OT Nov 23, 2017 11:37
--- NOTE | 2017-12-01 03:30 | DISCHARGE SUMMARY ---
DATE OF SERVICE: 11/22/2017 HISTORY OF PRESENT ILLNESS: The patient is a 72-year-old female, originally from [facility], who had some difficulty with communication as Cypriot is the second language, who was referred to inpatient rehabilitation unit by PCP, Dr. Nicole due to difficulty managing at home alone. Apparently, her daughter lives in [place] and the patient is a . The patient lives in [place]. The patient had been independent prior to this. She apparently was admitted to [facility] on 10/28/2017 after she returned from a trip to [facility] where she stopped taking her blood pressure medications. She had poorly controlled hypertension and imaging studies revealed a left pontine stroke. Her diabetes mellitus was also out of control and has a history of noncompliance. PAST MEDICAL HISTORY: As per above. MEDICAL COURSE: The patient was assessed on Wednesday morning, the as she was a Wednesday admission by therapy and other than language difficulty felt to be due to Cypriot as the second language. She was fairly independent. Her daughter presented and took her to home. Apparently whatever deficits, she did have, rapidly cleared. Her blood sugars from 11/22/2017 to 11/21/2017 varied between 102 and 213. She was afebrile during her brief stay. Her pulse was 63, respirations 16, blood pressure 127/77, O2 sat 98% on room air. She continued on her home medications. She was seen by her PCP, Dr. Nicole while on rehab unit as well. REHABILITATION COURSE: PT notes upon admission the patient was independent for mobility without gait aid. She scored a 55/56 on a [place] Paz balance scale and that she was felt safe to return home. Certainly, she may require some assistance with her and medication compliance. OT notes that she is able to perform all ADLs with independence to modified independence. She did demonstrate slight noted weakness in right upper limb, but she is left-hand dominant and she has functional strength. No loss of balance noted. She did complain of some difficulty with writing, but upon examination, she was able to write with testing in a functional manner with OT noting this. She was seen by speech therapy and it was felt that her communication difficulty largely due to Cypriot as the second language. She may certainly have followup with speech therapy regarding this for more detailed formal assessment and perhaps with the assistance of a securities counselor, who speaks Javier. DISCHARGE INSTRUCTIONS: She is discharged to home with her daughter. As the daughter lives in [place], perhaps she will stay with her for a while or consider assisted living setting or at least someone to check on her medication administration and her Accu-Cheks. Continue current diet and Accu-Cheks. Follow up with Dr. Nicole. DISCHARGE MEDICATIONS: Amlodipine 5 mg p.o. daily, ASA 81 mg p.o. daily, Lipitor 20 mg p.o. at bedtime, Plavix 75 mg p.o. daily, glyburide 2.5 mg p.o. b.i.d., metformin 1000 mg p.o. b.i.d. DISCHARGE DIAGNOSES: 1. Rehabilitation left pontine stroke with mild aphasia, appears improving. 2. Mild aphasia. 3. Hypertension, controlled with medication. 4. Diabetes mellitus, controlled with medication. 5. Oral diabetes medications. 6. Noncompliance. CONDITION AT DISCHARGE: Improved and stable. PROGNOSIS: Rehab prognosis appears good for some continued improvement at home. She may certainly benefit from a more formal assisted living setting unless her daughter is able to provide some supervision and make sure that she is taking her medications properly and in compliance. Job ID: [id number] DocumentID: [id number] Dictated Date: 11/30/2017 11:31:03 Saddle Cutter Date: 12/01/2017 03:29:32 Dictated By: SANDRA SIN MD
== END 2017-11-22 16:15 | disposition home or self-care (01) | DRG 57 ==
PROVIDERS: ADMIT Physical Medicine & Rehabilitation; ATTEND Physical Medicine & Rehabilitation
DX: I69.320 Aphasia following cerebral infarction (principal); I10 Essential (primary) hypertension; E11.9 Type 2 diabetes mellitus without complications; Z79.84 Long term (current) use of oral hypoglycemic drugs; Z91.14 Patient's other noncompliance with medication regimen
CPT/HCPCS: 82962